=== PATIENT | female | born 1955 | race Caucasian/White ===

== ENCOUNTER 2023-09-03 16:12 | Inpatient (IN) | payer OTHER, SELFPAY ==
[2023-09-03] VITALS (9 sets, daily range): BP systolic 137–163; BP diastolic 50–119; PULSE 100–109; RESP 16–35; TEMP 36.6–37.4; O2SAT 93–95; BMI 25.0
--- NOTE | 2023-09-03 17:23 | EDS_ITS ---
HPI <DUSTIN Ruiz - Last Filed: 09/03/23 20:37> History of Present Illness Chief Complaint: Shortness of Breath Narrative Narrative: Patient is a 68-year-old female with intermittent history of lower leg edema who since May 2023 has been having issues with pleural effusions. Today, the patient had a thoracentesis on the right lung, this happened at approximately 2 PM today, 2 L of clear yellow fluid was expelled. This was completed secondary to concern for breast cancer, it was sent for cytology. Patient continued to have shortness of breath, tachypnea and was sent to the emergency department. Patient denies any fever or chills. PFSH <DUSTIN Ruiz - Last Filed: 09/03/23 20:37> PFSH Allergy/AdvReac Type Severity Reaction Status Date / Time No Known Allergies Allergy Verified 09/03/23 16:13 Social History Smoking Status: Never smoker ROS <DUSTIN Ruiz - Last Filed: 09/03/23 20:37> ROS ED ROS Narrative Constitutional: Negative for fever, chills, weight loss, weakness Eyes: Negative for vision loss, vision change, double vision ENT: Negative for any sore throat, ear pain, congestion Cardiovascular: Negative for any chest pain, tightness, palpitations Respiratory: Negative for any cough, sputum production, hemoptysis, dyspnea on exertion, orthopnea. Positive for dyspnea Gastrointestinal: Negative for any abdominal pain, nausea, vomiting, diarrhea, constipation, blood in stool, blood in vomit : Negative for any urinary frequency, dysuria, retention, blood in urine Muscle skeletal: Negative for any neck pain, back pain Neurological: Negative for any headache, syncope, dizziness Skin: Negative for any rashes, itching, abrasions, lacerations Psychiatric: Negative for any depression, anxiety, stress, suicidal ideation, homicidal ideation Hematologic: Negative for any excessive bruising, easy bleeding EXAM <DUSTIN Ruiz - Last Filed: 09/03/23 20:37> Physical Exam Narrative Exam Narrative: Vital signs reviewed. Patient is tachypneic breathing at 35 times per minute, patient heart rate is 105, patient is 93 to 94% on room air. Patient is alert and orient x 4. HEET: Head normocephalic atraumatic, TMs clear bilaterally. Posterior pharynx is clear, moist mucous membranes. Nares clear bilaterally. Neck: Supple with no lymphadenopathy or tenderness. No signs of meningismus. Cardiac: Regular rate and rhythm no murmurs gallops or rubs, equal peripheral pulses bilaterally. Respiratory: Diminished lung sounds to the right upper and lower lobe, left upper lobe clear, lower lobe was diminished.. No chest tenderness. Abdomen: Soft, nontender, nondistended. No abdominal bruit or pulsatile masses. No hepatosplenomegaly Extremities: No peripheral edema, no signs of gross trauma or deformity. Active full range of motion of all extremities. Neuro: Cranial nerves II through XII intact, no focal neurological deficits. Skin: Clean dry and intact with no rash, purpura, petechiae, vesicles or pustules. Backs/flank: No CVA tenderness, no midline spinal tenderness, no deformity. Psych: Normal mood and affect. No SI, HI or acute psychosis. Const Vital Signs: 09/03/23 16:14 09/03/23 16:18 09/03/23 16:22 Temperature 98.1 F 98.1 F Temperature Source Oral Oral Pulse Rate 102 H 102 H Respiratory Rate 35 H 35 H Respiratory Effort Short of Breath Respiratory Depth Shallow Blood Pressure 150/91 H 150/91 H Blood Pressure Mean 110 110 Pulse Ox 93 94 Oxygen Delivery Method Room Air Room Air Room Air Oxygen Flow Rate (L/min) 09/03/23 17:18 09/03/23 18:00 09/03/23 19:35 Temperature 98.2 F 97.8 F 98.1 F Temperature Source Temporal Temporal Oral Pulse Rate 102 H 100 109 H Respiratory Rate 26 H 27 H 30 H Respiratory Effort Respiratory Depth Blood Pressure 144/77 H 137/91 H 163/119 H Blood Pressure Mean 99 106 133 Pulse Ox 94 93 95 Oxygen Delivery Method Room Air Room Air Nasal Cannula Oxygen Flow Rate (L/min) 2 Positive well nourished and well developed General Appearance ED: well developed <Dr. Hamlet Mueller MD - Last Filed: 09/03/23 21:31> Physical Exam Const Vital Signs: 09/03/23 16:14 09/03/23 16:18 09/03/23 16:22 Temperature 98.1 F 98.1 F Temperature Source Oral Oral Pulse Rate 102 H 102 H Respiratory Rate 35 H 35 H Respiratory Effort Short of Breath Respiratory Depth Shallow Blood Pressure 150/91 H 150/91 H Blood Pressure Mean 110 110 Pulse Ox 93 94 Oxygen Delivery Method Room Air Room Air Room Air Oxygen Flow Rate (L/min) 09/03/23 17:18 09/03/23 18:00 09/03/23 19:35 Temperature 98.2 F 97.8 F 98.1 F Temperature Source Temporal Temporal Oral Pulse Rate 102 H 100 109 H Respiratory Rate 26 H 27 H 30 H Respiratory Effort Respiratory Depth Blood Pressure 144/77 H 137/91 H 163/119 H Blood Pressure Mean 99 106 133 Pulse Ox 94 93 95 Oxygen Delivery Method Room Air Room Air Nasal Cannula Oxygen Flow Rate (L/min) 2 MDM <DUSTIN Ruiz - Last Filed: 09/03/23 20:37> MDM Lab Data Labs: Laboratory Results - last 24 hr 09/03/23 09/03/23 14:50 17:00 WBC 11.6 H RBC 5.78 H Hgb 15.8 H Hct 48.7 H MCV 84.3 MCH 27.3 MCHC 32.4 RDW Std Deviation 42.8 RDW Coeff of Duy 14.0 Plt Count 237 MPV 10.2 Immature Gran % (Auto) 1.000 H Neut % (Auto) 81.2 H Lymph % (Auto) 11.1 L Hamilton % (Auto) 5.5 Eos % (Auto) 0.3 Baso % (Auto) 0.9 Absolute Neuts (auto) 9.5 H Absolute Lymphs (auto) 1.29 Nucleated RBC % 0 Sodium 135 L Potassium 4.4 Chloride 100 Carbon Dioxide 29.0 Anion Gap 6 BUN 26 H Creatinine 1.21 H Estim Creat Clear Calc 38.93 Est GFR (MDRD) Af Amer 57 L Est GFR (MDRD) Non-Af 47 L BUN/Creatinine Ratio 21.5 H Glucose 137 H Calcium 11.0 H Fluid Source THORACENTESIS Fluid Color YELLOW Fluid Appearance CLEAR Fluid WBC 0.759 Fluid RBC 25 Fluid Tot Cell Count 0.775 H Fld Polynuclear WBCs # 0.008 Fld Polynuclear WBCs % 1.0 Fluid Mononuclear WBCs 0.751 Fld Mononuclear WBCs % 99.0 Fluid Neutrophils 1 Fluid Monocytes 99 Fl Pathologist Comment May follow Fluid Comment 2 SEE COMMENT Radiography Diagnostic Testing: Clinical Impression(s) from Imaging Studies Chest X-Ray 09/03/23 17:35 IMPRESSION: Right basilar consolidation/atelectasis and mild effusion. There appears to be a left hydropneumothorax. Left basilar consolidation cannot be excluded. Electronically Signed: Benjy Saenz DO at 18:51 EDT , ADDENDUM: 09/03/231911 IMPRESSION: undefined ADDENDUM: 09/03/231920 IMPRESSION: undefined Chest CTA 09/03/23 18:15 IMPRESSION: No demonstrated pulmonary embolism or arterial dissection. There is a moderately large left pleural effusion with significant compression of the left lung. There is a complex right hydropneumothorax with layering debris. Right pulmonary patchy infiltrates. Focal ill-defined right upper lobe nodular density. Diffuse bony metastasis. Left adrenal nodule. Electronically Signed: Benjy Saenz DO at 19:16 EDT , Chest X-Ray 09/03/23 20:20 IMPRESSION: Slight reduction in size right pleural effusion since previous study following chest tube placement. Electronically Signed: Son Andrew MD at 21:19 EDT , Treatment and Re-Evaluation :: Differential diagnosis includes however is not limited to: Pneumothorax, pleural effusion, hemothorax, infection, pulmonary embolus, community-acquired pneumonia Patient appears to be in slight distress secondary to tachypnea, patient's breathing 35 times per minute, patient's pulse oxygenation is between 93 to 95%. Heart rate is 105. I do have decreased lung sounds to the right lung, patient received a two-view chest x-ray. I did call the laboratory, I am running cell count, Gram stain, as well as culture on the thoracentesis fluid that the expelled today. Patient received a two-view chest x-ray now. All radiologic examinations were read, reviewed by the emergency department attending. From these reads, a plan of care will be put in place. Basic laboratory values were drawn. Patient will be reevaluated Patient CBC shows a leukocytosis of 11.6, patient's hemoglobin is 15.8, chemistries show sodium 135, creatinine of 1.2, patient's chest x-ray shows right basilar consolidation/atelectasis and mild effusion. There appears to be a left hydropneumothorax. Left basilar consolidation, cannot be excluded. Patient did receive a CTA of the chest, this shows no demonstrated pulmonary embolism or atrial dissection. There is a moderately large left pleural effusi on with significant compression of the left lung. There is a complex right hydropneumothorax with layering debris. Right pulmonary patchy infiltrates. Focal ill-defined right upper lobe nodule density. Diffuse bony metastasis, left adrenal nodule. Second to this finding, the emergency department attending did place a right-sided chest tube. Please see his documentation. At this time, patient did have some relief. Patient will be admitted to the hospital. <Dr. Hamlet Mueller MD - Last Filed: 09/03/23 21:31> [facility] Narrative Medical decision making narrative: I have personally performed a face to face assessment of the patient and have reviewed the PHUONG Note. I performed a substantive portion of the visit including all aspects of the following. My santiago findings include: History is patient presents because of shortness of breath. Patient had a thoracentesis done today. Postthoracentesis chest x-ray apparently was negative. Patient is tachycardic, tachypneic and hypertensive. She is not requiring oxygen at this time. Patient does appear in respiratory distress. Breath sounds are diminished on the right compared to the left. She has no breath sounds two thirds of the lung field on the left. There is breath sounds noted upper lung field the right but it is diminished and uncertain whether this is due to a pneumothorax or her small hemothorax. Exam is vital signs reveal tachycardia, tachypnea hypertension. Breath sounds are abnormal bilaterally more so left than right. Abdomen is soft nontender. Patient has an obvious right breast cancer. Medical Decision Making patient differential includes pneumothorax, PE. Since there was no obvious pneumothorax on the chest x-ray CT was obtained since patient tachycardic tachypneic and has obvious right breast cancer. Gram stain, cell count and culture was obtained on fluid that was obtained from radiology. The fluid was sent for cytology. Other additions or changes: Patient required a chest tube. Please see procedure note. History & Record Review Discussion w/independent historian: Patient and Family Lab Data Attestation: I reviewed the patient's lab results. Lab results narrative: CBC reveals slightly low white count of 11.6 thousand. Differential reveals mild shift with no bandemia. Electrolyte panel reveals a creatinine of 1.21 with an estimated GFR 47. Pleural fluid reveals 759 WBCs with 25 RBCs. Labs: Laboratory Results - last 24 hr 09/03/23 09/03/23 14:50 17:00 WBC 11.6 H RBC 5.78 H Hgb 15.8 H Hct 48.7 H MCV 84.3 MCH 27.3 MCHC 32.4 RDW Std Deviation 42.8 RDW Coeff of Duy 14.0 Plt Count 237 MPV 10.2 Immature Gran % (Auto) 1.000 H Neut % (Auto) 81.2 H Lymph % (Auto) 11.1 L Hamilton % (Auto) 5.5 Eos % (Auto) 0.3 Baso % (Auto) 0.9 Absolute Neuts (auto) 9.5 H Absolute Lymphs (auto) 1.29 Nucleated RBC % 0 Sodium 135 L Potassium 4.4 Chloride 100 Carbon Dioxide 29.0 Anion Gap 6 BUN 26 H Creatinine 1.21 H Estim Creat Clear Calc 38.93 Est GFR (MDRD) Af Amer 57 L Est GFR (MDRD) Non-Af 47 L BUN/Creatinine Ratio 21.5 H Glucose 137 H Calcium 11.0 H Fluid Source THORACENTESIS Fluid Color YELLOW Fluid Appearance CLEAR Fluid WBC 0.759 Fluid RBC 25 Fluid Tot Cell Count 0.775 H Fld Polynuclear WBCs # 0.008 Fld Polynuclear WBCs % 1.0 Fluid Mononuclear WBCs 0.751 Fld Mononuclear WBCs % 99.0 Fluid Neutrophils 1 Fluid Monocytes 99 Fl Pathologist Comment May follow Fluid Comment 2 SEE COMMENT Radiography Chest X-Ray - ED: 1 View (You have no portable chest x-ray was obtained post chest tube. Lung is expanded. Chest tube is in proper position. This is apparently reviewed interpreted by me.), 2 View and Read by ED Physician (Chest x-ray on the PA reveals less pleural effusion on the right. There appears to be lung markings all the way to through out the lung field on the right. She has a moderate to significant size left pleural effusion. The lateral reveals an abnormality which I am uncertain what this represents.) Diagnostic Testing: Clinical Impression(s) from Imaging Studies Chest X-Ray 09/03/23 17:35 IMPRESSION: Right basilar consolidation/atelectasis and mild effusion. There appears to be a left hydropneumothorax. Left basilar consolidation cannot be excluded. Electronically Signed: Benjy Saenz DO at 18:51 EDT , ADDENDUM: 09/03/231911 IMPRESSION: undefined ADDENDUM: 09/03/231920 IMPRESSION: undefined Chest CTA 09/03/23 18:15 IMPRESSION: No demonstrated pulmonary embolism or arterial dissection. There is a moderately large left pleural effusion with significant compression of the left lung. There is a complex right hydropneumothorax with layering debris. Right pulmonary patchy infiltrates. Focal ill-defined right upper lobe nodular density. Diffuse bony metastasis. Left adrenal nodule. Electronically Signed: Benjy Saenz DO at 19:16 EDT , Chest X-Ray 09/03/23 20:20 IMPRESSION: Slight reduction in size right pleural effusion since previous study following chest tube placement. Electronically Signed: Son Andrew MD at 21:19 EDT , Procedures <Dr. Hamlet Mueller MD - Last Filed: 09/03/23 21:31> Other Procedures Procedure(s): Right chest tube Patient was explained risk benefits of chest tube. Chest tube was placed using 28 Malay. In my opinion based on the cancer and the fact that she has fluid which may be a malignant pleural effusion concern the small tubing would occlude. After explaining risk benefits patient did sign consent form. Patient was prepped draped sterile manner. The area anesthetized with 1% lidocaine. An incision was made using a 10 blade. The incision was lower than normal. Blunt dissection was undertaken to go 3 ribs above incision site. The pleural cavity was entered. There was a mancilla of air. 28 Malay chest tube was placed. Patient's vital signs improved after placement of chest tube. She did require medication during the procedure. She was given IV fentanyl. Will obtain chest x-ray for chest tube placement. Hospitalist has been called. If patient and seen by surgeon will consult surgery for chest tube management otherwise will call pulmonary. Discharge Plan Dx/Rx/DC Orders Clinical Impression: Acute respiratory failure with hypoxia, Iatrogenic pneumothorax, Sinus tachycardia, Dyspnea, Bilateral pleural effusion, Breast mass Disposition Disposition: Acute Care Hospital [facility]
--- NOTE | 2023-09-03 17:35 | RAD_ITS ---
We are attempting to reach an attending provider to discuss findings. An addendum with communication details will be sent when the communication is complete. INDICATION: shortness of breath EXAMINATION/TECHNIQUE: X-RAY - XR Chest 2 Views COMPARISON: September 03, 2023 at 15:03 hours FINDINGS: LINES/DEVICES: None. LUNGS: Right basilar consolidation/atelectasis and mild effusion. There appears to be a left hydropneumothorax. Left basilar consolidation cannot be excluded. MEDIASTINUM AND CARDIOVASCULAR STRUCTURES: Cardiac silhouette not enlarged. Central airways and mediastinal contour are unremarkable. BONES AND SOFT TISSUES: Degenerative vertebral changes. RAD/Chest PA and Lateral IMPRESSION: Right basilar consolidation/atelectasis and mild effusion. There appears to be a left hydropneumothorax. Left basilar consolidation cannot be excluded. Electronically Signed: Benjy Saenz DO at 18:51 EDT ,
[2023-09-03 17:42] LABS: Absolute Lymphocyte Count 1.29 X10^3/uL (0.83-4.51); Absolute Neutrophil Count 9.5 X10^3/uL (2.0-7.7); Basophil# 0.11 X10^3/uL; Basophil% 0.9 % (0-1); Eosinophil# 0.03 X10^3/uL; Eosinophils% 0.3 % (0-5); Hematocrit 48.7 % (37-47); Hemoglobin 15.8 g/dL (12.0-15.0); Lymphocyte # 1.29 X10^3/ul (0.83-4.51); Lymphocyte % 11.1 % (19-41); Mean Corp Hgb Conc 32.4 g/dL (32-36); Mean Corpuscular Hgb 27.3 pg (27.0-32.0); Mean Corpuscular Volume 84.3 fL (81-99); Mean Platelet Vol. 10.2 fl (6.2-12.0); Monocyte# 0.64 X10^3/uL; Monocyte% 5.5 % (0-10); NRBC Flagged by Analyzer 0 % (0-5); Neutrophil # 9.45 X10^3/uL (2.7-7.7); Neutrophil % 81.2 % (47-70); Platelet Count 237 K/mm3 (150-450); RBC Distribution Width SD 42.8 fl (35.1-43.9); Red Blood Count 5.78 M/mm3 (4.2-5.4); White Blood Count 11.6 K/mm3 (4.4-11.0)
[2023-09-03 17:57] LABS: Anion Gap 6 (5-15); BUN 26 mg/dL (7-18); BUN/Creat Ratio 21.5 RATIO (10-20); Chloride 100 mmol/L (98-107); Creatinine, Serum 1.21 mg/dL (0.55-1.02); EST Glomerular Filtration Rate 47 mL/min (>60); Est Glom Filt Rate - Afr Amer 57 mL/min (>60); Estimated Creatinine Clearance 38.93 ml/min; Glucose 137 mg/dL (74-106); Potassium 4.4 mmol/L (3.5-5.1); Sodium Level 135 mmol/L (136-145)
--- NOTE | 2023-09-03 18:15 | CT_ITS ---
STUDY: CTA CHEST REASON FOR EXAM: Female, 68 years old. PE RADIATION DOSAGE (If Supplied By Facility): CTDIvol = ( 9.92 ) mGy, DLP = ( 327.24 ) mGycm TECHNIQUE: The examination was performed with the intravenous administration of ISOVUE 370-100ml. Post-processing of the angiographic images was performed, with multiplanar reformation and 3D reconstruction. Individualized dose optimization techniques were used for this CT. COMPARISON: FINDINGS: Normal enhancement of the main pulmonary artery and right and left pulmonary arteries. Normal enhancement of the bilateral peripheral pulmonary arteries. There is no demonstrated pulmonary embolism. Normal thoracic aorta and visualized great vessels. There is no demonstrated aortic dissection. Normal heart and pericardium. Normal mediastinum. Normal hilar regions. Normal visualized trachea and bronchi. There is a moderately large left pleural effusion with significant compression of the left lung. There is a complex right hydropneumothorax with layering debris. Right pulmonary patchy infiltrates. Focal ill-defined right upper lobe nodular density measuring 8 mm Normal chest wall structures. Diffuse bony metastasis is suspected. Left adrenal 1.[address]/CTA Chest W/WO Contrast IMPRESSION: No demonstrated pulmonary embolism or arterial dissection. There is a moderately large left pleural effusion with significant compression of the left lung. There is a complex right hydropneumothorax with layering debris. Right pulmonary patchy infiltrates. Focal ill-defined right upper lobe nodular density. Diffuse bony metastasis. Left adrenal nodule. Electronically Signed: Benjy Saenz DO at 19:16 EDT ,
[2023-09-03 18:54] LABS: Body Fluid Mononuclear WBC # 0.751 10^3/uL; Body Fluid Polynuclear WBC # 0.008 10^3/uL; Body Fluid Total Cells Counted 0.775 10^3/ul; White Blood Count/Body Fluid 0.759 10^3/uL
[2023-09-03 18:57] LABS: Red Cell Count/Body Fluid 25 /mm3
[2023-09-03] MEDS: fentaNYL 100 MCG/2 ML Ampul 50 MCG IV (19:32)
[2023-09-03] MEDS: Lidocaine 1% (20 ml mdv) 20 ML Vial 10 ML INFILT (19:33)
[2023-09-03 20:07] LABS: Appearance/Body Fluid CLEAR; Auto B Fluid Analyzer BKGD Ct COUNTS W/IN LIMITS (W/IN LIMITS); Color/Body Fluid YELLOW; Neutrophil (Segs) 1 %; Source- Body Fluid THORACENTESIS
[2023-09-03 20:08] LABS: Body Fluid QC Type(s) BF1Q
--- NOTE | 2023-09-03 20:09 | HP.PCM.HOS_ITS ---
HPI - General General Date of Admission: 09/03/23 Date of Service: 09/03/23 Chief Complaint: SOB. HPI Narrative DARCY BURNHAM, is a 68 F with a past medical history of breast cancer with malignant bilateral pleural effusions followed by Dr. Ferreira of oncology; s/p recent Right thoracentesis at radiology earlier today who presents to [facility] ER complaining of SOB. Ms. Shepard reports her symptoms began approximately 2:00 PM today after she said with ~2L of yellow fluid aspirated with patient then having increasing SOB and palpitations. She denies associated fever, chills, nausea or vomiting. In the ER her CT scan of the chest was positive for a complex Right Hydropneumothorax with layering debris and significant compression of the Left lung with a moderately large Left pleural effusion with significant compression of the Left lung and diffuse bony metastasis complicated by clinical evidence of acute respiratory insufficiency and uncontrolled hypertension with patient still a Full Code. Then the ER provider place a Right chest tube and called the hospitalist service to admit this patient to ICU for ongoing care for a stay that is expected to be greater than 48 hours. [facility] Medical History no medical history Home Medications NK 09/03/23 [History Last Taken Unknown] Allergy/AdvReac Type Severity Reaction Status Date / Time No Known Allergies Allergy Verified 09/03/23 16:13 Surgical History no surgical history Social History Smoking Status: Never smoker ROS ROS Narrative Review of systems: General: Patient denies fevers or chills. HENT: Denies headache, denies stuffy nose, denies sore throat EYES: Denies changes in vision Resp: Patient admits to severe shortness of breath as per HPI. Cardiac: Denies chest pain or palpitations. GI: Denies abdominal pain, denies changes in bowel, had denies vomiting or nausea : Denies changes in urination Extremity: Denies swelling Musculoskeletal: Feels somewhat generally weak and unwell Neuro: Denies any numbness/tingling Heme: Denies any bleeding or bruising Skin: Denies rashes Psychiatric: No complaints voiced related to uncontrolled depression or anxiety. Endocrine: No polyuria, polydipsia or polyphagia The rest of the 14 point ROS was negative except for positives in HPI. Vital Signs Vital Signs Vital Signs: 09/03/23 16:14 09/03/23 16:18 09/03/23 16:22 Temperature 98.1 F 98.1 F Temperature Source Oral Oral Pulse Rate 102 H 102 H Respiratory Rate 35 H 35 H Respiratory Effort Short of Breath Respiratory Depth Shallow Blood Pressure 150/91 H 150/91 H Blood Pressure Mean 110 110 Pulse Ox 93 94 Oxygen Delivery Method Room Air Room Air Room Air Oxygen Flow Rate (L/min) 09/03/23 17:18 09/03/23 18:00 09/03/23 19:35 Temperature 98.2 F 97.8 F 98.1 F Temperature Source Temporal Temporal Oral Pulse Rate 102 H 100 109 H Respiratory Rate 26 H 27 H 30 H Respiratory Effort Respiratory Depth Blood Pressure 144/77 H 137/91 H 163/119 H Blood Pressure Mean 99 106 133 Pulse Ox 94 93 95 Oxygen Delivery Method Room Air Room Air Nasal Cannula Oxygen Flow Rate (L/min) 2 Weight Weight: 150 lb 5.684 oz Body Mass Index (BMI) 25.0 Physical Exam Const alert, oriented x3 and no apparent distress Constitutional Narrative: Patient appears chronically ill. General Appearance: cooperative HEENT normocephalic, head/scalp atraumatic and hearing grossly normal bilaterally HEENT Narrative: Mucous membranes dry. Eyes PERRL and EOMs intact bilaterally Neck no lymphadenopathy and supple Resp Resp Narrative: Diminished breath sounds throughout with right chest tube in place. Cardio regular rate and regular rhythm GI normal to inspection, nondistended, normoactive bowel sounds, soft to palpation, non-tender and non-distended Extremity normal to inspection and full ROM Skin Skin Narrative: Patient appears extremely pale but there is no evidence of rash or jaundice. Neuro oriented x3, CN's II-XII intact bilaterally, moves all extremities and no focal motor deficits Sensorium / Orientation: awake, alert, oriented to person, oriented to place and oriented to time Speech: speech normal Psych affect normal Results Medical Records Data Attestation: I reviewed the patient's medical records Lab / Micro Data Attestation: I reviewed the patient's lab results. 09/03/23 17:00 09/03/23 17:00 Labs: Laboratory Results - last 24 hr 09/03/23 14:50: Fluid Source THORACENTESIS, Fluid Color YELLOW, Fluid Appearance CLEAR, Fluid WBC 0.759, Fluid RBC 25, Fluid Tot Cell Count 0.775 H, Fld Polynuclear WBCs # 0.008, Fld Polynuclear WBCs % 1.0, Fluid Mononuclear WBCs 0.751, Fld Mononuclear WBCs % 99.0, Fluid Neutrophils 1, Fluid Monocytes 99, Fl Pathologist Comment May follow, Fluid Comment 2 SEE COMMENT 09/03/23 17:00: WBC 11.6 H, RBC 5.78 H, Hgb 15.8 H, Hct 48.7 H, MCV 84.3, MCH 27.3, MCHC 32.4, RDW Std Deviation 42.8, RDW Coeff of Duy 14.0, Plt Count 237, MPV 10.2, Immature Gran % (Auto) 1.000 H, Neut % (Auto) 81.2 H, Lymph % (Auto) 11.1 L, [place] % (Auto) 5.5, Eos % (Auto) 0.3, Baso % (Auto) 0.9, Absolute Neuts (auto) 9.5 H, Absolute Lymphs (auto) 1.29, Nucleated RBC % 0, Sodium 135 L, Potassium 4.4, Chloride 100, Carbon Dioxide 29.0, Anion Gap 6, BUN 26 H, Creatinine 1.21 H, Estim Creat Clear Calc 38.93, Est GFR (MDRD) Af Amer 57 L, Est GFR (MDRD) Non-Af 47 L, BUN/Creatinine Ratio 21.5 H, Glucose 137 H, Calcium 11.0 H Imaging Radiology Impression Chest X-Ray 09/03/23 17:35 IMPRESSION: Right basilar consolidation/atelectasis and mild effusion. There appears to be a left hydropneumothorax. Left basilar consolidation cannot be excluded. Electronically Signed: Benjy Saenz DO at 18:51 EDT Reading Location ID and State: [facility] / [place] Tel [phone], Service support , ADDENDUM: 09/03/231911 IMPRESSION: undefined ADDENDUM: 09/03/231920 IMPRESSION: undefined Chest CTA 09/03/23 18:15 IMPRESSION: No demonstrated pulmonary embolism or arterial dissection. There is a moderately large left pleural effusion with significant compression of the left lung. There is a complex right hydropneumothorax with layering debris. Right pulmonary patchy infiltrates. Focal ill-defined right upper lobe nodular density. Diffuse bony metastasis. Left adrenal nodule. Electronically Signed: Benjy Dany at 19:16 EDT , Assessment & Plan Assessment/Plan (1) Iatrogenic pneumothorax: (2) Respiratory insufficiency: (3) Uncontrolled hypertension: PLAN: Plan 1. Complex Right Hydropneumothorax with layering debris and significant compression of the Left lung with a moderately large Left pleural effusion with significant compression of the Left lung and diffuse bony metastasis - Admit to ICU. Continue chest tube care plan and consult general surgery to see this patient for further recommendations with help appreciated in advance. Give Tylenol prn for [id number] (level 1-5/10 pain or fever). Give Morphine IV prn for severe (level 6-10/10) pain. 2. Known history of metastatic breast cancer followed by Dr. Ferreira of oncology with recent thoracentesis at IR with post-procedure complication leading to #1 - Noted. 3. Uncontrolled Hypertension compounding #1 & #2 - Give IV Hydralazine for systolic blood pressure > 160 mm Hg. 4. Acute Hypoxic Respiratory Insufficiency arising from #1 - #3 - Wean supplemental oxygen as tolerated. 5. DVT prophylaxis - SCD's only after recent thoracentesis complicated by PTX. Total time: Approximately 55 minutes. Charges/Coding Visit Charges Inpatient E&M: 95938 Init Hosp L2
--- NOTE | 2023-09-03 20:20 | RAD_ITS ---
STUDY: X-RAY CHEST REASON FOR EXAM: Female, 68 years old. CHEST TUBE PLACEMENT TECHNIQUE: AP portable COMPARISON: [September 03 2023 5:56 PM FINDINGS: Comparison with prior exam again demonstrates persistent right hydropneumothorax. The pleural effusion has decreased slightly in size since prior exam status post chest tube placement large left pleural effusion and consolidation of left lower lobe... RAD/Chest 1 View (Portable) IMPRESSION: Slight reduction in size right pleural effusion since previous study following chest tube placement. Electronically Signed: Son Andrew MD at 21:19 EDT ,
[2023-09-03] MEDS: 0.9% Normal Saline (1000mL) 1,000 ML 40 ML IV (22:28)
[2023-09-03] MEDS: 0.9% Saline Lock 10 ML Syringe IV (22:31)
[2023-09-04] VITALS (7 sets, daily range): BP systolic 137–159; BP diastolic 80–86; PULSE 102–104; RESP 18–20; TEMP 36.3–36.6; O2SAT 95–97; BMI 24.9
--- NOTE | 2023-09-04 00:25 | CON.PCM.SX_ITS ---
Assessment & Plan Assessment/Plan (1) Breast mass: (2) Bilateral pleural effusion: (3) Iatrogenic pneumothorax: PLAN: Plan Patient is 68-year-old female with likely new metastatic breast cancer diagnosis and associated pleural effusions. Cytology is currently pending from earlier thoracentesis that resulted in a significant pneumothorax. Chest tube was placed by emergency medicine and appears in reasonably good position within the right hemithorax. Post procedurally radiology did comment on a persistent hydropneumothorax which suggest that the tube and the pleural air are in different anterior/posterior orientations from 1 another. Provided that patient's right lung is not trapped in the pleural space is rather confluent still this tube should serve the purpose of evacuating this pneumothorax. Clinically patient reports significant improvement in her shortness of breath at bedside tonight. I informed her that we will plan to keep the tube on suction and monitor its output. At this time I do not observe an air leak. Will plan for repeat chest x-ray in the morning. It is apparent that patient has a moderately large left pleural effusion as well and there are reports that primary team is tentatively planning for left-sided thoracentesis later in patient's admission. When able would recommend patient advancement to a high- protein diet. For now recommend: ? Chest tube to continuous suction at -20 cm of water monitoring for kinking and disconnection ? A.m. chest x-ray HPI Consult Data Date of Consult: 09/04/23 HPI Narrative Reason for Consultation: Right hydropneumothorax status post chest tube HPI Narrative: DARCY BURNHAM, is a 68 F who presented to [facility] for right thoracentesis. Post procedurally she developed severe tachypnea and tachycardia resulting in reimaging which showed evidence of a hydropneumothorax. Upon making this observation emergency medicine placed a 28 Bulgarian chest tube to the right pleural cavity resulting in some improvement patient's pleural effusion. Surgery was asked to evaluate for ongoing chest tube management. Patient is visited in her room with her family present. She shares that she first started feeling short of breath in May. She notes that this tap of her lung was the first time she has required this procedure. She confirms that she has been told previously that this pleural effusion may be related to an undiagnosed breast cancer. She suggests that her right breast firmness, exhibited on exam, started just 2 months ago. There is no family history of breast cancer. [facility] Medical History no medical history Home Medications NK 09/03/23 [History Last Taken Unknown] Allergy/AdvReac Type Severity Reaction Status Date / Time No Known Allergies Allergy Verified 09/03/23 16:13 Surgical History no surgical history Social History Smoking Status: Never smoker Physical Exam Const alert Constitutional Narrative: Flat affect General Appearance: cooperative Chest Chest Narrative: Chest tube in place draining serosanguineous fluid with some exudative material. Right breast with significant firmness and some nipple inversion/effacement. There is also some overlying redness of the skin Resp Resp Narrative: Mildly tachypneic. Pleur-evac with no obvious air leak but there is titling. Chest tube is currently connected to -20 cm of water without kinking and all connections appear intact. Lab / Micro Data 09/03/23 17:00 09/03/23 17:00 Labs: Laboratory Results - last 24 hr 09/03/23 14:50: Fluid Source THORACENTESIS, Fluid Color YELLOW, Fluid Appearance CLEAR, Fluid WBC 0.759, Fluid RBC 25, Fluid Tot Cell Count 0.775 H, Fld Polynuclear WBCs # 0.008, Fld Polynuclear WBCs % 1.0, Fluid Mononuclear WBCs 0.751, Fld Mononuclear WBCs % 99.0, Fluid Neutrophils 1, Fluid Monocytes 99, Fl Pathologist Comment May follow, Fluid Comment 2 SEE COMMENT 09/03/23 17:00: WBC 11.6 H, RBC 5.78 H, Hgb 15.8 H, Hct 48.7 H, MCV 84.3, MCH 27.3, MCHC 32.4, RDW Std Deviation 42.8, RDW Coeff of Duy 14.0, Plt Count 237, MPV 10.2, Immature Gran % (Auto) 1.000 H, Neut % (Auto) 81.2 H, Lymph % (Auto) 11.1 L, [place] % (Auto) 5.5, Eos % (Auto) 0.3, Baso % (Auto) 0.9, Absolute Neuts (auto) 9.5 H, Absolute Lymphs (auto) 1.29, Nucleated RBC % 0, Sodium 135 L, Potassium 4.4, Chloride 100, Carbon Dioxide 29.0, Anion Gap 6, BUN 26 H, Creati nine 1.21 H, Estim Creat Clear Calc 38.93, Est GFR (MDRD) Af Amer 57 L, Est GFR (MDRD) Non-Af 47 L, BUN/Creatinine Ratio 21.5 H, Glucose 137 H, Calcium 11.0 H Imaging Radiology Impression Chest X-Ray 09/03/23 17:35 IMPRESSION: Right basilar consolidation/atelectasis and mild effusion. There appears to be a left hydropneumothorax. Left basilar consolidation cannot be excluded. Electronically Signed: Benjy Saenz DO at 18:51 EDT , ADDENDUM: 09/03/231911 IMPRESSION: undefined ADDENDUM: 09/03/231920 IMPRESSION: undefined Chest CTA 09/03/23 18:15 IMPRESSION: No demonstrated pulmonary embolism or arterial dissection. There is a moderately large left pleural effusion with significant compression of the left lung. There is a complex right hydropneumothorax with layering debris. Right pulmonary patchy infiltrates. Focal ill-defined right upper lobe nodular density. Diffuse bony metastasis. Left adrenal nodule. Electronically Signed: Benjy Saenz DO at 19:16 EDT , Chest X-Ray 09/03/23 20:20 IMPRESSION: Slight reduction in size right pleural effusion since previous study following chest tube placement. Electronically Signed: Son Andrew MD at 21:19 EDT , Charges/Coding Visit Charges Inpatient E&M: 16708 Init Hosp L2
--- NOTE | 2023-09-04 05:55 | RAD_ITS ---
STUDY: X-RAY CHEST REASON FOR EXAM: Female, 68 years old. Right PTX after thoracentesis. TECHNIQUE: Single AP portable view of the chest. COMPARISON: September 03, 2023 FINDINGS: There is right chest tube. There are monitoring devices. There are left greater than right mid and lower lung airspace increased opacities. There is moderately large left pleural effusion. There is small right pleural effusion there is no pneumothorax seen. Normal size heart. Normal mediastinum and sandrita. Normal visualized pulmonary arteries. Normal visualized aortic arch and descending thoracic aorta. Normal visualized thoracic spine. Normal visualized ribs, clavicles, and shoulders. There is no demonstrated abnormality of the visualized soft tissue structures of the upper abdomen. RAD/Chest 1 View (Portable) IMPRESSION: Left greater than right infiltrates or edema and pleural effusions. Right chest tube. No pneumothorax seen. Electronically Signed: Bill Johnson MD at 11:09 EDT ,
[2023-09-04 06:14] LABS: Basophil# 0.06 X10^3/uL; Basophil% 0.4 % (0-1); Eosinophil# 0.01 X10^3/uL; Eosinophils% 0.1 % (0-5); Hemoglobin 15.4 g/dL (12.0-15.0); Lymphocyte % 8.9 % (19-41); Mean Corp Hgb Conc 32.8 g/dL (32-36); Mean Corpuscular Hgb 27.6 pg (27.0-32.0); Mean Corpuscular Volume 84.2 fL (81-99); Mean Platelet Vol. 10.4 fl (6.2-12.0); Monocyte% 7.6 % (0-10); NRBC Flagged by Analyzer 0 % (0-5); Neutrophil # 13.04 X10^3/uL (2.7-7.7); Neutrophil % 82.4 % (47-70); Platelet Count 218 K/mm3 (150-450); Red Blood Count 5.58 M/mm3 (4.2-5.4); White Blood Count 15.8 K/mm3 (4.4-11.0)
[2023-09-04 06:52] LABS: ALB/GLOB Ratio 0.7 RATIO (0.9-2.4); AST(SGOT) 37 U/L (15-37); Alanine Aminotransfer ALT/SGPT 28 U/L (13-56); Alkaline Phosphatase 325 U/L (45-117); Anion Gap 7 (5-15); BUN 26 mg/dL (7-18); BUN/Creat Ratio 24.3 RATIO (10-20); Calcium,Total 10.3 mg/dL (8.5-10.1); Chloride 103 mmol/L (98-107); Creatinine, Serum 1.07 mg/dL (0.55-1.02); EST Glomerular Filtration Rate 54 mL/min (>60); Est Glom Filt Rate - Afr Amer 65 mL/min (>60); Estimated Creatinine Clearance 44.02 ml/min; Globulin 4.5 g/dL (2.2-4.2); Glucose 119 mg/dL (74-106); Magnesium 2.5 mg/dL (1.6-2.6); Phosphorus 4.6 mg/dL (2.5-4.9); Potassium 4.4 mmol/L (3.5-5.1); Protein, Total 7.5 g/dL (6.4-8.2); Sodium Level 137 mmol/L (136-145)
--- NOTE | 2023-09-04 10:30 | CASEMGMT ---
OBED GREER Face to Face with patient for initial transition planning/care coordination assessment. RN CM introduced self and role at [facility]. Patient lying in bed, alert and oriented, family at bedside. Patient willing to participate in assessment and is able to answer all questions appropriately. Care providers, pharmacy, and demographics verified. 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 Patient states she was independent at home. Transportation: driving service DME/HHC: Patient has raised toilet, cane, walker, wheelchair, pulse ox at home. Patient has concentrator that she borrowed from chiropractor but no portability. Will monitor for home oxygen with portability, prefers [employer]. Has generator for electricity. No previous HHC or SNF. Patient wishes to discharge home, denies needs for HHC or SNF, states family can assist at home. Will monitor progress with therapy. Patient states she has no further needs or concerns at this time. CM to follow for discharge planning needs that may arise. Disposition Plan: Patient to discharge home with family support and follow-up plans in place. Will monitor for home oxygen and HHC at discharge. Danuta CHAMPAGNE, RN, CM
[2023-09-04] MEDS: Ensure Plus High Protein 120 ML LIQUID PO ×3 (14:37→22:27)
--- NOTE | 2023-09-04 19:37 | PN.HOSP_ITS ---
Reason for Visit Reason for Visit: Diagnoses Essential (primary) hypertension (09/03/23) Pleural effusion, not elsewhere classified (09/03/23) Postprocedural pneumothorax (09/03/23) Acute respiratory failure with hypoxia (09/03/23) Unspecified lump in unspecified breast (09/03/23) Other abnormalities of breathing (09/03/23) Subjective Subjective Patient was seen and examined today, she is currently on 2 L of oxygen, she appears frail and unwell however. I talked to general surgery about her care, I also talked with Dr. Eckert who is covering for Dr. Ferreira, he thinks it may be advantageous to transfer the patient to a bigger facility where a chest surgeon is available for the patient to see regarding a possible pleurodesis. I also talked with Dr. Olmedo about this today, unfortunately I do not know if we have a tissue diagnosis at the time of this dictation, I will have to talk to the patient and the patient's family again tomorrow, the patient today told me that she has not seen an oncologist which is obviously not true. Objective Data Objective Data Vital Signs: Vital Signs Temp Pulse Resp BP Pulse Ox O2 Del Method O2 Flow Rate 98 F 102 H 19 H 144/80 H 95 Nasal Cannula 2 09/04/23 16:51 09/04/23 16:51 09/04/23 16:51 09/04/23 16:51 09/04/23 16:51 09/04/23 16:51 09/04/23 16:51 Oxygen Flow Rate (L/min) 2 Oxygen Delivery Method Nasal Cannula Weight: 68 kg Body Mass Index (BMI) 24.9 Intake & Output: Intake and Output for Last 24 Hours 09/02/23 09/03/23 09/04/23 23:59 23:59 23:59 Intake Total 1459.33 / 1459.33 Output Total 650 / 800 1565 / 1565 Balance -650 / -800 -105.67 / -105.67 Medical Nutrition Assessment Dietitian: Malnutrition Criteria Met Start: 09/04/23 11:52 Freq: Status: Active Protocol: Document 09/04/23 11:52 AG (Rec: 09/04/23 11:52 AG [id number]) Nutrition Malnutrition Evidence of Malnutrition Exists Yes Malnutrition (severe): Chronic Evidenced By Suboptimal Energy Intake ( Severe),Weight Loss (Severe) Clinical Problem Chronic Disease or Condition Related Malnutrition Etiology severe, chronic malnutrition related to inadequate energy intake w/ increased energy needs d/t likely metastatic disease Signs/Symptoms as evidenced by estimated PO intake meeting <75% of estimated energy needs x 3 months, unintentional 9% wt loss x 3 months Status Active Problem Recommendation Dietitian Recommendations/Changes diet advanced to regular per Dr. Bai. Ensure Plus High Protein 120mL 4x/day w/ medpass given evidence of malnutrition Lab / Micro Data 09/04/23 05:11 09/04/23 05:11 Labs: Laboratory Results - last 24 hr 09/03/23 14:50: Fluid Source THORACENTESIS, Fluid Color YELLOW, Fluid Appearance CLEAR, Fluid WBC 0.759, Fluid RBC 25, Fluid Tot Cell Count 0.775 H, Fld Polynuclear WBCs # 0.008, Fld Polynuclear WBCs % 1.0, Fluid Mononuclear WBCs 0.751, Fld Mononuclear WBCs % 99.0, Fluid Neutrophils 1, Fluid Monocytes 99, Fl Pathologist Comment May follow, Fluid Comment 2 SEE COMMENT 09/04/23 05:11: WBC 15.8 H, RBC 5.58 H, Hgb 15.4 H, Hct 47.0, MCV 84.2, MCH 27.6, MCHC 32.8, RDW Std Deviation 43.0, RDW Coeff of Duy 14.0, Plt Count 218, MPV 10.4, Immature Gran % (Auto) 0.600, Neut % (Auto) 82.4 H, Lymph % (Auto) 8.9 L, [place] % (Auto) 7.6, Eos % (Auto) 0.1, Baso % (Auto) 0.4, Absolute Neuts (auto) 13.0 H, Absolute Lymphs (auto) 1.40, Nucleated RBC % 0, Sodium 137, Potassium 4.4, Chloride 103, Carbon Dioxide 27.0, Anion Gap 7, BUN 26 H, Creatinine 1.07 H , Estim Creat Clear Calc 44.02, Est GFR (MDRD) Af Amer 65, Est GFR (MDRD) Non-Af 54 L, BUN/Creatinine Ratio 24.3 H, Glucose 119 H, Calcium 10.3 H, Phosphorus 4.6, Magnesium 2.5, Total Bilirubin 0.60, AST 37, ALT 28, Alkaline Phosphatase 325 H, Total Protein 7.5, Albumin 3.0 L, Globulin 4.5 H, Albumin/Globulin Ratio 0.7 L, TSH 2.60 Micro: Microbiology 09/03/23 14:50 Fluid - Thoracentesis Fluid Gram Stain - Final 09/03/23 14:50 Fluid - Thoracentesis Fluid Body Fluid Culture - Preliminary No growth-Final to follow Radiography Diagnostic Testing: Radiology Impression Chest X-Ray 09/03/23 20:20 IMPRESSION: Slight reduction in size right pleural effusion since previous study following chest tube placement. Electronically Signed: Son Andrew MD at 21:19 EDT , Chest X-Ray 09/04/23 05:55 IMPRESSION: Left greater than right infiltrates or edema and pleural effusions. Right chest tube. No pneumothorax seen. Electronically Signed: Bill Johnson MD at 11:09 EDT , Physical Exam Const alert, oriented x3 and no apparent distress Constitutional Narrative: Patient appears frail, unwell General Appearance: cooperative, well kempt and well developed Orientation / Consciousness: awake, oriented to person and oriented to place HEENT normocephalic, head/scalp atraumatic and moist oral mucous membranes Eyes PERRL, EOMs intact bilaterally and conjunctivae normal Neck supple, no JVD, thyroid normal and no carotid bruits General: trachea midline Resp Resp Narrative: There are diminished breath sounds on the right, there is diminished breath sounds at the left lung base extending to the left mid lung Patient's respirations are shallow and rapid at time Auscultation: Negative for rales, rhonchi or wheezes Cardio regular rate, regular rhythm, S1 normal heart sound, S2 normal heart sound, no murmurs, no rub and no gallops GI normal to inspection, nondistended, normoactive bowel sounds, soft to palpation, non-tender and non-distended Extremity no clubbing, cyanosis or edema Skin Skin Narrative: The entire right breast area is reddened and firm to the touch, the firmness extends up into the right axillary area Neuro oriented x3, CN's II-XII intact bilaterally, moves all extremities, no focal motor deficits and no sensory deficits noted Sensorium / Orientation: awake, alert, oriented to person and oriented to place Speech: speech normal Psych affect normal Assessment & Plan Assessment/Plan (1) Acute respiratory failure with hypoxia: PLAN: Plan 1. Iatrogenic pneumothorax-patient has a chest tube in place and she is still getting drainage, I discussed her care with general surgery today. #2 bilateral pleural effusions-right chest tube is draining large amounts of fluid still, we are waiting for cytology on the pleural fluid #3 suspected metastatic cancer with skeletal mets present-the most likely source of the metastatic cancer appears to be undiagnosed right breast cancer, patient may need a biopsy of the right breast #4 hypoxia secondary to bilateral pleural effusions and iatrogenic pneumothorax- patient is currently on 2 L of oxygen Total clinical time spent by myself addressing the patient's medical issues, reviewing all of her data, and collaborating with patient's care team: 35 minutes Charges/Coding Visit Charges Inpatient E&M: 78481 Subs Hosp L2
[2023-09-04] MEDS: 0.9% Normal Saline (1000mL) 1,000 ML 40 ML IV (22:27)
[2023-09-05] VITALS (9 sets, daily range): BP systolic 134–157; BP diastolic 77–99; PULSE 102–109; RESP 18–30; TEMP 36.3–36.4; O2SAT 95–97; BMI 25.9
--- NOTE | 2023-09-05 07:00 | RAD_ITS ---
EXAM: XR CHEST, 1 VIEW CLINICAL INDICATION: chest tube TECHNIQUE: Frontal view of the chest. COMPARISON: September 04, 2023 at 6:00 AM. FINDINGS: LUNGS AND PLEURAL SPACES: Suspicion of trace residual right pneumothorax with slight lucency at the apex, adjacent to the right mediastinal margin and adjacent to the right heart margin. Exam is indicated to be with upright position but there is no air-fluid level in the stomach to confirm completely upright positioning. Similar hazy basilar opacities bilaterally. There is similar appearance of moderate-large left pleural effusion and mild to moderate right pleural effusion. HEART: Unremarkable. Cardiac silhouette not enlarged. MEDIASTINUM: Central airways and mediastinal contour are unremarkable. BONES/JOINTS: Thoracic spondylosis.. No acute fracture. SOFT TISSUES: Unremarkable. TUBES, LINES AND DEVICES: Right thoracostomy tube remains stable in position, tip over the sixth posterior-medial right rib. RAD/Chest 1 View (Portable) IMPRESSION: 1. Similar findings. Well-positioned thoracostomy tube. Left greater than right pleural effusions and basilar opacities. 2. Suspicion of trace residual right pneumothorax as described, likely improved. There appear to be a larger subpulmonic pneumothorax component on September 03 2023. Electronically Signed: Lizz Gardner MD at 9:06 EDT ,
[2023-09-05] MEDS: Ensure Plus High Protein 120 ML LIQUID PO ×3 (09:01→18:33)
--- NOTE | 2023-09-05 09:15 | PCM.PN.SRG ---
Subjective Subjective Patient seen and examined during AM rounds. She is found sitting out of bed in the chair. Her family states that it was somewhat taxing for her to get to that point but patient states that she is feeling somewhat improved. They question whether or not a left-sided thoracentesis is planned for tomorrow. Objective Data Objective Data Vital Signs: Vital Signs Temp Pulse Resp BP Pulse Ox O2 Del Method O2 Flow Rate 97.6 F L 109 H 30 H 151/96 H 95 Nasal Cannula 2 09/05/23 09:00 09/05/23 09:00 09/05/23 09:00 09/05/23 09:00 09/05/23 09:00 09/05/23 09:00 09/05/23 09:00 Oxygen Flow Rate (L/min) 2 Oxygen Delivery Method Nasal Cannula Weight: 155 lb 10.342 oz Body Mass Index (BMI) 25.9 Intake & Output: Intake and Output for Last 24 Hours 09/03/23 09/04/23 09/05/23 23:59 23:59 23:59 Intake Total 1619.33 / 1619.33 Output Total 650 / 800 2085 / 2085 290 / 290 Balance -650 / -800 -465.67 / -465.67 -290 / -290 Medical Nutrition Assessment Dietitian: Malnutrition Criteria Met Start: 09/04/23 11:52 Freq: Status: Active Protocol: Document 09/04/23 11:52 AG (Rec: 09/04/23 11:52 [id number]) Nutrition Malnutrition Evidence of Malnutrition Exists Yes Malnutrition (severe): Chronic Evidenced By Suboptimal Energy Intake ( Severe),Weight Loss (Severe) Clinical Problem Chronic Disease or Condition Related Malnutrition Etiology severe, chronic malnutrition related to inadequate energy intake w/ increased energy needs d/t likely metastatic disease Signs/Symptoms as evidenced by estimated PO intake meeting <75% of estimated energy needs x 3 months, unintentional 9% wt loss x 3 months Status Active Problem Recommendation Dietitian Recommendations/Changes diet advanced to regular per Dr. Bai. Ensure Plus High Protein 120mL 4x/day w/ medpass given evidence of malnutrition Lab / Micro Data 09/04/23 05:11 09/04/23 05:11 Micro: Microbiology 09/03/23 14:50 Fluid - Thoracentesis Fluid Gram Stain - Final 09/03/23 14:50 Fluid - Thoracentesis Fluid Body Fluid Culture - Preliminary No growth-Final to follow Radiography Diagnostic Testing: Radiology Impression Chest X-Ray 09/04/23 05:55 IMPRESSION: Left greater than right infiltrates or edema and pleural effusions. Right chest tube. No pneumothorax seen. Electronically Signed: Bill Johnson MD at 11:09 EDT , Chest X-Ray 09/05/23 07:00 IMPRESSION: 1. Similar findings. Well-positioned thoracostomy tube. Left greater than right pleural effusions and basilar opacities. 2. Suspicion of trace residual right pneumothorax as described, likely improved. There appear to be a larger subpulmonic pneumothorax component on September 03 2023. Electronically Signed: Lizz Gardner MD at 9:06 EDT , Physical Exam Const alert Constitutional Narrative: Flat affect General Appearance: cooperative Chest Chest Narrative: Chest tube in place draining serosanguineous fluid with some exudative material. The total output to the Pleur-evac collection system appears to have risen from the 1000 to 1500 mL today. I do not see any signs of air leak. I do not palpate any crepitus along the chest wall. All chest tube connections appear intact. Patient remains connected to suction at -20 cmH2O Resp Resp Narrative: Mildly tachypneic. Pleur-evac with no obvious air leak but there is titling. Chest tube is currently connected to -20 cm of water without kinking and all connections appear intact. Assessment & Plan Assessment/Plan (1) Breast mass: (2) Bilateral pleural effusion: (3) Iatrogenic pneumothorax: PLAN: Plan Patient is 68-year-old female with likely new metastatic breast cancer diagnosis and associated pleural effusions. Cytology is currently pending from earlier thoracentesis that resulted in a significant pneumothorax. Chest tube was placed by emergency medicine and appears in reasonably good position within the right hemithorax. Multiple conversations have now been held between hospitalist service and myself regarding the proper course of action. There is been some out reach to both patient's PCP as well as oncology. Initially there was concern for ongoing drainage and possible need for transfer for thoracentesis, however, additional oncology consultation suggest that the effusions should significantly improve with treatment. Thus, we will plan to await the results of patient's cytology result. If this is inconclusive, patient may require a breast biopsy. For now, patient's chest tube still is accumulating had a rather impressive rate (500 mL over the past 24 hours) and I would be reluctant to pull her chest tube for risk of early reaccumulation. For now recommend: ? Chest tube to continuous suction at -20 cm of water monitoring for kinking and disconnection ? A.m. chest x-ray ? Follow-up cytology and await primary team/oncology stance on need for additional tissue Charges/Coding Visit Charges Inpatient E&M: 19386 Subs Hosp L2
--- NOTE | 2023-09-05 10:42 | NURSING ---
This nurse resuming care of this patient at this time.
--- NOTE | 2023-09-05 19:21 | PN.HOSP_ITS ---
Reason for Visit Reason for Visit: Diagnoses Essential (primary) hypertension (09/03/23) Pleural effusion, not elsewhere classified (09/03/23) Postprocedural pneumothorax (09/03/23) Acute respiratory failure with hypoxia (09/03/23) Unspecified lump in unspecified breast (09/03/23) Other abnormalities of breathing (09/03/23) Subjective Subjective Patient was seen and examined today, I talked with her family members who are present in the room today, patient's sister and brother were in the room. Patient's continue to have a lot of drainage from her right chest tube. I have elected at this time not to proceed with thoracentesis tomorrow on her left side, patient is on 2 L of oxygen and although she has rapid shallow respirations, she does not appear to be in any obvious distress. I am not sure how much the patient understands about her possible illness, I did talk with the patient's PCPs covering nurse practitioner today, she stated that the patient had been going to a chiropractor for quite some time and there was x-rays obtained and then came in to see her PCP after the x-ray showed fluid in the chest cavity. Patient was then sent to pulmonary medicine for evaluation (Dr. Reyes) and he ordered the thoracentesis. I talked briefly with oncology today by phone, patient has not yet seen any oncologist and oncology would prefer to see the patient after a tissue diagnosis has been made. I will contact pathology tomorrow morning and discuss the case with them. Objective Data Objective Data Vital Signs: Vital Signs Temp Pulse Resp BP Pulse Ox O2 Del Method O2 Flow Rate 97.5 F L 102 H 18 139/99 H 97 Nasal Cannula 2 09/05/23 18:46 09/05/23 18:46 09/05/23 18:46 09/05/23 18:46 09/05/23 18:46 09/05/23 18:46 09/05/23 18:46 Oxygen Flow Rate (L/min) 2 Oxygen Delivery Method Nasal Cannula Weight: 70.6 kg Body Mass Index (BMI) 25.9 Intake & Output: Intake and Output for Last 24 Hours 09/03/23 09/04/23 09/05/23 23:59 23:59 23:59 Intake Total 1619.33 / 1619.33 120 / 120 Output Total 650 / 800 2085 / 2084 540 / 540 Balance -650 / -800 -465.67 / -465.67 -420 / -420 Medical Nutrition Assessment Dietitian: Malnutrition Criteria Met Start: 09/04/23 11:52 Freq: Status: Active Protocol: Document 09/04/23 11:52 (Rec: 09/04/23 11:52 AG [id number]) Nutrition Malnutrition Evidence of Malnutrition Exists Yes Malnutrition (severe): Chronic Evidenced By Suboptimal Energy Intake ( Severe),Weight Loss (Severe) Clinical Problem Chronic Disease or Condition Related Malnutrition Etiology severe, chronic malnutrition related to inadequate energy intake w/ increased energy needs d/t likely metastatic disease Signs/Symptoms as evidenced by estimated PO intake meeting <75% of estimated energy needs x 3 months, unintentional 9% wt loss x 3 months Status Active Problem Recommendation Dietitian Recommendations/Changes diet advanced to regular per Dr. Bai. Ensure Plus High Protein 120mL 4x/day w/ medpass given evidence of malnutrition Lab / Micro Data 09/04/23 05:11 09/04/23 05:11 Micro: Microbiology 09/03/23 14:50 Fluid - Thoracentesis Fluid Gram Stain - Final 09/03/23 14:50 Fluid - Thoracentesis Fluid Body Fluid Culture - Preliminary No growth-Final to follow Radiography Diagnostic Testing: Radiology Impression Chest X-Ray 09/05/23 07:00 IMPRESSION: 1. Similar findings. Well-positioned thoracostomy tube. Left greater than right pleural effusions and basilar opacities. 2. Suspicion of trace residual right pneumothorax as described, likely improved. There appear to be a larger subpulmonic pneumothorax component on September 03 2023. Electronically Signed: Lizz Gardner MD at 9:06 EDT , Physical Exam Narrative alert, oriented x3 and no apparent distress Constitutional Narrative: Patient appears frail, unwell General Appearance: cooperative, well kempt and well developed Orientation / Consciousness: awake, oriented to person and oriented to place HEENT normocephalic, head/scalp atraumatic and moist oral mucous membranes Eyes PERRL, EOMs intact bilaterally and conjunctivae normal Neck supple, no JVD, thyroid normal and no carotid bruits General: trachea midline Resp Resp Narrative: There are diminished breath sounds on the right, there is diminished breath sounds at the left lung base extending to the left mid lung Patient's respirations are shallow and rapid at time Auscultation: Negative for rales, rhonchi or wheezes Cardio regular rate, regular rhythm, S1 normal heart sound, S2 normal heart sound, no murmurs, no rub and no gallops GI normal to inspection, nondistended, normoactive bowel sounds, soft to palpation, non-tender and non-distended Extremity no clubbing, cyanosis or edema Skin Skin Narrative: The entire right breast area is reddened and firm to the touch, the firmness extends up into the right axillary area Neuro oriented x3, CN's II-XII intact bilaterally, moves all extremities, no focal motor deficits and no sensory deficits noted Sensorium / Orientation: awake, alert, oriented to person and oriented to place Speech: speech normal Psych affect normal Assessment & Plan Assessment/Plan (1) Bilateral pleural effusion: (2) Acute respiratory failure with hypoxia: PLAN: Plan 1. Iatrogenic pneumothorax-patient has a chest tube in place and she is still getting drainage, I discussed her care with general surgery today. I will contact pathology tomorrow to go over the case with them #2 bilateral pleural effusions-right chest tube is draining large amounts of fluid still, we are waiting for cytology on the pleural fluid #3 suspected metastatic cancer with skeletal mets present-the most likely source of the metastatic cancer appears to be undiagnosed right breast cancer, patient may need a biopsy of the right breast if her pleural fluid does not show cancer. #4 hypoxia secondary to bilateral pleural effusions and iatrogenic pneumothorax- patient is currently on 2 L of oxygen Total clinical time spent by myself addressing the patient's medical issues, reviewing all of her data, and collaborating with patient's care team: 35 minutes Charges/Coding Visit Charges Inpatient E&M: 81756 Subs Hosp L2
[2023-09-05] MEDS: 0.9% Normal Saline (1000mL) 1,000 ML 40 ML IV (23:25)
[2023-09-06] VITALS (9 sets, daily range): BP systolic 124–148; BP diastolic 75–89; PULSE 98–107; RESP 14–18; TEMP 36.3–36.4; O2SAT 94–98; BMI 25.4
--- NOTE | 2023-09-06 06:10 | RAD_ITS ---
EXAM: XR CHEST, 1 VIEW CLINICAL INDICATION: chest tube TECHNIQUE: Frontal view of the chest. COMPARISON: 09/05/2023. FINDINGS: LUNGS AND PLEURAL SPACES: Slight residual right apical pneumothorax similar to the prior exam. No change in the moderate right and large left pleural effusion. HEART: Unremarkable. Cardiac silhouette not enlarged. MEDIASTINUM: Central airways and mediastinal contour are unremarkable. BONES/JOINTS: Unremarkable. No acute fracture. SOFT TISSUES: Unremarkable. TUBES, LINES AND DEVICES: No change in the right-sided chest tube. RAD/Chest 1 View (Portable) IMPRESSION: 1. Slight residual right apical pneumothorax similar to the prior exam. 2. No change in the right-sided chest tube. 3. No change in the moderate right and large left pleural effusion. Electronically Signed: Stevie Mendez MD at 6:36 EDT ,
--- NOTE | 2023-09-06 08:08 | PN.SURG_ITS ---
Subjective Subjective Patient seen and examined during AM rounds. She has found resting in bed. She denies any acute events overnight. Objective Data Objective Data Vital Signs: Vital Signs Temp Pulse Resp BP Pulse Ox O2 Del Method O2 Flow Rate 97.3 F L 101 H 18 148/89 H 96 Nasal Cannula 2 09/06/23 03:45 09/06/23 03:45 09/06/23 03:45 09/06/23 03:45 09/06/23 03:45 09/06/23 03:45 09/06/23 03:45 Oxygen Flow Rate (L/min) 2 Oxygen Delivery Method Nasal Cannula Weight: 152 lb 12.485 oz Body Mass Index (BMI) 25.4 Intake & Output: Intake and Output for Last 24 Hours 09/04/23 09/05/23 09/06/23 23:59 23:59 23:59 Intake Total 1619.33 / 1619.33 1118.67 / 1118.67 Output Total 2085 / 2085 730 / 730 250 / 250 Balance -465.67 / -465.67 388.67 / 388.67 -250 / -250 Medical Nutrition Assessment Dietitian: Malnutrition Criteria Met Start: 09/04/23 11:52 Freq: Status: Active Protocol: Document 09/04/23 11:52 AG (Rec: 09/04/23 11:52 [id number]) Nutrition Malnutrition Evidence of Malnutrition Exists Yes Malnutrition (severe): Chronic Evidenced By Suboptimal Energy Intake ( Severe),Weight Loss (Severe) Clinical Problem Chronic Disease or Condition Related Malnutrition Etiology severe, chronic malnutrition related to inadequate energy intake w/ increased energy needs d/t likely metastatic disease Signs/Symptoms as evidenced by estimated PO intake meeting <75% of estimated energy needs x 3 months, unintentional 9% wt loss x 3 months Status Active Problem Recommendation Dietitian Recommendations/Changes diet advanced to regular per Dr. Bai. Ensure Plus High Protein 120mL 4x/day w/ medpass given evidence of malnutrition Lab / Micro Data 09/04/23 05:11 09/04/23 05:11 Micro: Microbiology 09/03/23 14:50 Fluid - Thoracentesis Fluid Gram Stain - Final 09/03/23 14:50 Fluid - Thoracentesis Fluid Body Fluid Culture - Preliminary No growth-Final to follow Radiography Diagnostic Testing: Radiology Impression Chest X-Ray 09/05/23 07:00 IMPRESSION: 1. Similar findings. Well-positioned thoracostomy tube. Left greater than right pleural effusions and basilar opacities. 2. Suspicion of trace residual right pneumothorax as described, likely improved. There appear to be a larger subpulmonic pneumothorax component on September 03 2023. Electronically Signed: Lizz Gardner MD at 9:06 EDT , Chest X-Ray 09/06/23 06:10 IMPRESSION: 1. Slight residual right apical pneumothorax similar to the prior exam. 2. No change in the right-sided chest tube. 3. No change in the moderate right and large left pleural effusion. Electronically Signed: Stevie Mendez MD at 6:36 EDT , Physical Exam Const oriented x3 Constitutional Narrative: Flat affect General Appearance: cooperative Chest Chest Narrative: Chest tube in place draining serosanguineous fluid with some exudative material. The total output to the Pleur-evac collection system appears to have risen from the 7117-8602 mL today. Today there is an intermittent airleak when patient is able to truly cough. I do not palpate any crepitus along the chest wall. All chest tube connections appear intact. Patient remains connected to suction at - 20 cmH2O Resp Resp Narrative: Mildly tachypneic Assessment & Plan Assessment/Plan (1) Breast mass: (2) Bilateral pleural effusion: (3) Iatrogenic pneumothorax: PLAN: Plan Patient is 68-year-old female with likely new metastatic breast cancer diagnosis and associated pleural effusions. Cytology is currently pending from earlier thoracentesis that resulted in a significant pneumothorax. Chest tube was placed by emergency medicine and appears in reasonably good position within the right hemithorax. Multiple conversations have now been held between hospitalist service and myself regarding the proper course of action. There is been some outreach to both patient's PCP as well as oncology. Initially there was concern for ongoing drainage and possible need for transfer for thoracentesis and pleu rodesis, however, additional oncology consultation suggest that the effusions should significantly improve with treatment. Thus, we will plan to await the results of patient's cytology result. If this is inconclusive, patient may require a breast biopsy. Once again patient's chest tube still is accumulating at a rather impressive rate (450 mL over the past 24 hours) and I would be reluctant to pull her chest tube for risk of early reaccumulation. Additionally today there is observation of an air leak and a trace pneumothorax. Thus we must see that the lung is able to seal. If we are unable to control the airleak patient may need transfer for attention from cardiothoracic surgery anyhow. For now recommend: ? Chest tube to continuous suction at -20 cm of water monitoring for kinking and disconnection ? A.m. chest x-ray ? Follow-up cytology and await primary team/oncology stance on need for additional tissue Charges/Coding Visit Charges Inpatient E&M: 65038 Subs Hosp L2
[2023-09-06] MEDS: Ensure Plus High Protein 120 ML LIQUID PO ×4 (11:04→22:00)
[2023-09-06 13:19] LABS: Lymphocytes 97 %; Macrophages 2 %
--- NOTE | 2023-09-06 19:12 | PN.HOSP_ITS ---
Reason for Visit Reason for Visit: Diagnoses Essential (primary) hypertension (09/03/23) Pleural effusion, not elsewhere classified (09/03/23) Postprocedural pneumothorax (09/03/23) Acute respiratory failure with hypoxia (09/03/23) Unspecified lump in unspecified breast (09/03/23) Other abnormalities of breathing (09/03/23) Subjective Subjective Patient was seen and examined today, we are still getting quite a bit of fluid from her right chest tube. I talked briefly with surgery about her care today, I also talked with her PCP by phone late this afternoon, he stated that the patient had a chest x-ray approximately 5 weeks ago which showed evidence of pleural effusion, she was then referred to pulmonary medicine who saw the patient and ordered a thoracentesis. Patient also had refused a breast biopsy scheduling by the PCP. Patient did have an outpatient CT of the chest and abdomen which I ask if the PCP would be kind enough to fax to PCU to included in her chart. Patient is still on 2 L of oxygen at this time, she appears comfor table at rest, I spent some time with her and her siblings today discussing whether to work her illness up further with perhaps a breast biopsy, patient cannot decide and try to defer the decision to her brother, he declined to make that decision however. Pathology stated that the fluid cytology would be back in the morning, if this does not prove helpful, she will more than likely need a breast biopsy before we can proceed with any treatment or have hospice consultation. Objective Data Objective Data Vital Signs: Vital Signs Temp Pulse Resp BP Pulse Ox O2 Del Method O2 Flow Rate 97.3 F L 98 14 124/75 H 98 Nasal Cannula 2 09/06/23 16:21 09/06/23 16:21 09/06/23 16:21 09/06/23 16:21 09/06/23 16:21 09/06/23 16:21 09/06/23 16:21 Oxygen Flow Rate (L/min) 2 Oxygen Delivery Method Nasal Cannula Weight: 69.3 kg Body Mass Index (BMI) 25.4 Intake & Output: Intake and Output for Last 24 Hours 09/04/23 09/05/23 09/06/23 23:59 23:59 23:59 Intake Total 1619.33 / 1619.33 1118.67 / 1118.67 300 / 300 Output Total 2084 / 2084 730 / 730 770 / 770 Balance -465.67 / -465.67 388.67 / 388.67 -470 / -470 Medical Nutrition Assessment Dietitian: Malnutrition Criteria Met Start: 09/04/23 11:52 Freq: Status: Active Protocol: Document 09/04/23 11:52 (Rec: 09/04/23 11:52 [id number]) Nutrition Malnutrition Evidence of Malnutrition Exists Yes Malnutrition (severe): Chronic Evidenced By Suboptimal Energy Intake ( Severe),Weight Loss (Severe) Clinical Problem Chronic Disease or Condition Related Malnutrition Etiology severe, chronic malnutrition related to inadequate energy intake w/ increased energy needs d/t likely metastatic disease Signs/Symptoms as evidenced by estimated PO intake meeting <75% of estimated energy needs x 3 months, unintentional 9% wt loss x 3 months Status Active Problem Recommendation Dietitian Recommendations/Changes diet advanced to regular per Dr. Bai. Ensure Plus High Protein 120mL 4x/day w/ medpass given evidence of malnutrition Lab / Micro Data 09/04/23 05:11 09/04/23 05:11 Labs: Laboratory Results - last 24 hr 09/03/23 14:50: Fluid Source THORACENTESIS, Fluid Color YELLOW, Fluid Appearance CLEAR, Fluid WBC 0.759, Fluid RBC 25, Fluid Tot Cell Count 0.775 H, Fld Polynuclear WBCs # 0.008, Fld Polynuclear WBCs % 1.0, Fluid Mononuclear WBCs 0.751, Fld Mononuclear WBCs % 99.0, Fluid Neutrophils 1, Fluid Lymphocytes 97, Fluid Monocytes PRECISION HONING MACHINE OPERATOR, Fluid Macrophages 2, Fl Pathologist Comment May follow, Fluid Comment 2 SEE COMMENT Micro: Microbiology 09/03/23 14:50 Fluid - Thoracentesis Fluid Gram Stain - Final 09/03/23 14:50 Fluid - Thoracentesis Fluid Body Fluid Culture - Final No growth aerobically. 09/03/23 14:50 Fluid - Thoracentesis Fluid Anaerobic Culture - Preliminary No growth in 48 hours. Radiography Diagnostic Testing: Radiology Impression Chest X-Ray 09/06/23 06:10 IMPRESSION: 1. Slight residual right apical pneumothorax similar to the prior exam. 2. No change in the right-sided chest tube. 3. No change in the moderate right and large left pleural effusion. Electronically Signed: Stevie Mendez MD at 6:36 EDT , Physical Exam Narrative alert, oriented x3 and no apparent distress Constitutional Narrative: Patient appears frail, unwell General Appearance: cooperative, well kempt and well developed Orientation / Consciousness: awake, oriented to person and oriented to place HEENT normocephalic, head/scalp atraumatic and moist oral mucous membranes Eyes PERRL, EOMs intact bilaterally and conjunctivae normal Neck supple, no JVD, thyroid normal and no carotid bruits General: trachea midline Resp Resp Narrative: There are diminished breath sounds on the right, there is diminished breath soun ds at the left lung base extending to the left mid lung Patient's respirations are shallow and rapid at time Auscultation: Negative for rales, rhonchi or wheezes Cardio regular rate, regular rhythm, S1 normal heart sound, S2 normal heart sound, no murmurs, no rub and no gallops GI normal to inspection, nondistended, normoactive bowel sounds, soft to palpation, non-tender and non-distended Extremity no clubbing, cyanosis or edema Skin Skin Narrative: The entire right breast area is reddened and firm to the touch, the firmness extends up into the right axillary area Neuro oriented x3, CN's II-XII intact bilaterally, moves all extremities, no focal motor deficits and no sensory deficits noted Sensorium / Orientation: awake, alert, oriented to person and oriented to place Speech: speech normal Psych affect normal Assessment & Plan Assessment/Plan (1) Respiratory insufficiency: (2) Bilateral pleural effusion: (3) Acute respiratory failure with hypoxia: PLAN: Plan 1. Iatrogenic pneumothorax-patient has a chest tube in place and she is still getting drainage, I discussed her care with general surgery today. We are awaiting pathology results on her pleural fluid #2 bilateral pleural effusions-right chest tube is draining large amounts of fluid still, we are waiting for cytology on the pleural fluid #3 suspected metastatic cancer with skeletal mets present-the most likely source of the metastatic cancer appears to be undiagnosed right breast cancer, patient may need a biopsy of the right breast if her pleural fluid does not show cancer. At this time patient cannot make up her mind whether to proceed with the breast biopsy if it is needed. #4 hypoxia secondary to bilateral pleural effusions and iatrogenic pneumothorax- patient is currently on 2 L of oxygen Total clinical time spent by myself addressing the patient's medical issues, reviewing all of her data, and collaborating with patient's care team: 35 minutes Charges/Coding Visit Charges Inpatient E&M: 90379 Subs Hosp L2
[2023-09-07] VITALS (16 sets, daily range): BP systolic 105–168; BP diastolic 73–109; PULSE 79–173; RESP 16–24; TEMP 36.4; O2SAT 82–99; BMI 25.4
[2023-09-07] MEDS: 0.9% Normal Saline (1000mL) 1,000 ML 40 ML IV ×2 (00:39→23:26)
--- NOTE | 2023-09-07 08:07 | EKG12_ITS ---
Test Reason : HIGH HR Blood Pressure : / mmHG Vent. Rate : 159 BPM Atrial Rate : 000 BPM P-R Int : 000 ms QRS Dur : 068 ms QT Int : 264 ms P-R-T Axes : 000 031 250 degrees QTc Int : 429 ms Critical Test Result: High HR Atrial fibrillation with rapid ventricular response Low voltage QRS Nonspecific ST and T wave abnormality Abnormal ECG When compared with ECG of 03-SEP-2023 17:34, Significant changes have occurred Confirmed by Stevie Cuellar ([id number]), greeting card editor CLAU KILGORE ([id number]) on 09/09/2023 11:11:47 AM Referred By: Confirmed By:Stevie Cuellar
[2023-09-07] MEDS: Metoprolol Tartrate 50 MG Tablet PO ×2 (09:25→14:38)
[2023-09-07] MEDS: Ensure Plus High Protein 120 ML LIQUID PO ×3 (09:27→18:20)
[2023-09-07 10:22] LABS: Pathologist Comment/Body Fluid Reviewed
--- NOTE | 2023-09-07 11:00 | RAD_ITS ---
STUDY: X-RAY CHEST REASON FOR EXAM: Female, 68 years old. f/u CT status TECHNIQUE: Single AP portable view of the chest. COMPARISON: Comparison is made with prior study dated September 06, 2023. FINDINGS: A right-sided chest tube is once again seen in the right mid chest. Stable minimal right apical pneumothorax. Bilateral pleural effusions left greater than right with bibasilar infiltrates and/or atelectasis worse on the left side. Normal size heart. Normal mediastinum and sandrita. Normal visualized pulmonary arteries. There is atherosclerotic tortuosity of the aortic arch and descending thoracic aorta. There are diffuse degenerative changes of the visualized thoracic spine. Normal visualized ribs, clavicles, and shoulders. There is no demonstrated abnormality of the visualized soft tissue structures of the upper abdomen. RAD/Chest 1 View (Portable) IMPRESSION: Stable minimal right apical pneumothorax. Stable bilateral pleural effusions with bibasilar infiltration and/or atelectasis. Electronically Signed: Sarthak Fournier MD at 11:28 EDT ,
--- NOTE | 2023-09-07 11:50 | PCM.PN.SRG ---
Subjective Subjective Patient seen and examined during AM rounds. She is found resting in a chair. Her brother states that his sister had more difficulty catching her breath and her pulse oximeter was alarming this morning. She reports that she is feeling better following that event. Objective Data Objective Data Vital Signs: Vital Signs Temp Pulse Resp BP Pulse Ox O2 Del Method O2 Flow Rate 97.5 F L 135 H 20 H 147/75 H 97 Nasal Cannula 5 09/07/23 09:22 09/07/23 09:25 09/07/23 09:22 09/07/23 09:25 09/07/23 09:22 09/07/23 10:00 09/07/23 10:00 Oxygen Flow Rate (L/min) 5 Oxygen Delivery Method Nasal Cannula Weight: 152 lb 8.958 oz Body Mass Index (BMI) 25.4 Intake & Output: Intake and Output for Last 24 Hours 09/05/23 09/06/23 09/07/23 23:59 23:59 23:59 Intake Total 1118.67 / 1118.67 300 / 300 1000 / 1000 Output Total 730 / 730 770 / 780 10 / 10 Balance 388.67 / 388.67 -470 / -480 990 / 990 Medical Nutrition Assessment Dietitian: Malnutrition Criteria Met Start: 09/04/23 11:52 Freq: Status: Active Protocol: Document 09/04/23 11:52 (Rec: 09/04/23 11:52 [id number]) Nutrition Malnutrition Evidence of Malnutrition Exists Yes Malnutrition (severe): Chronic Evidenced By Suboptimal Energy Intake ( Severe),Weight Loss (Severe) Clinical Problem Chronic Disease or Condition Related Malnutrition Etiology severe, chronic malnutrition related to inadequate energy intake w/ increased energy needs d/t likely metastatic disease Signs/Symptoms as evidenced by estimated PO intake meeting <75% of estimated energy needs x 3 months, unintentional 9% wt loss x 3 months Status Active Problem Recommendation Dietitian Recommendations/Changes diet advanced to regular per Dr. Bai. Ensure Plus High Protein 120mL 4x/day w/ medpass given evidence of malnutrition Lab / Micro Data 09/04/23 05:11 09/04/23 05:11 Labs: Laboratory Results - last 24 hr 09/03/23 14:50: Fluid Source THORACENTESIS, Fluid Color YELLOW, Fluid Appearance CLEAR, Fluid WBC 0.759, Fluid RBC 25, Fluid Tot Cell Count 0.775 H, Fld Polynuclear WBCs # 0.008, Fld Polynuclear WBCs % 1.0, Fluid Mononuclear WBCs 0.751, Fld Mononuclear WBCs % 99.0, Fluid Neutrophils 1, Fluid Lymphocytes 97, Fluid Monocytes DELIVERY ASSOCIATE, Fluid Macrophages 2, Fl Pathologist Comment Reviewed, Fluid Comment 2 SEE COMMENT Micro: Microbiology 09/03/23 14:50 Fluid - Thoracentesis Fluid Gram Stain - Final 09/03/23 14:50 Fluid - Thoracentesis Fluid Body Fluid Culture - Final No growth aerobically. 09/03/23 14:50 Fluid - Thoracentesis Fluid Anaerobic Culture - Preliminary No growth in 48 hours. Radiography Diagnostic Testing: Radiology Impression Chest X-Ray 09/07/23 11:00 IMPRESSION: Stable minimal right apical pneumothorax. Stable bilateral pleural effusions with bibasilar infiltration and/or atelectasis. Electronically Signed: Sarthak Fournier MD at 11:28 EDT , Physical Exam Const oriented x3 and no apparent distress Constitutional Narrative: Flat affect General Appearance: cooperative Chest Chest Narrative: Chest tube in place draining serosanguineous fluid with some exudative material. The total output to the Pleur-evac collection system since its replacement yesterday is 500 mL. Once again, there is an intermittent airleak when patient is able to truly cough. I do not palpate any crepitus along the chest wall. All chest tube connections were directly interrogated and appear intact. Chest tube remains to suction at -20 cmH2O Resp Resp Narrative: Mildly tachypneic Assessment & Plan Assessment/Plan (1) Breast mass: (2) Bilateral pleural effusion: (3) Iatrogenic pneumothorax: PLAN: Plan Patient is 68-year-old female with likely new metastatic breast cancer diagnosis and associated pleural effusions. Cytology is reportedly consistent with only atypical cells from earlier thoracentesis that resulted in a significant pneumothorax. Chest tube was placed by emergency medicine and appears in reasonably good position within the right hemithorax. Multiple conversations have now been held between hospitalist service and myself regarding the proper course of action. There is been some outreach to both patient's PCP as well as oncology. Initially there was concern for ongoing drainage and possible need for transfer for thoracentesis and pleurodesis, however, additional oncology consultation suggest that the effusions should significantly improve with treatment. However, today sandoval the third day in a row that the output has been between 400- 500 mL Additionally both today and yesterday have observed an air leak as well as there is been a pneumothorax seen on patient's chest x-ray. Both of these stand as reasons against being able to pull the chest tube and I have also thus recommended consideration of transfer for cardiothoracic evaluation as patient may require pleurectomy with pleurodesis. At some point patient may also require a breast biopsy to definitively understand the etiology for her pleural effusions. For now recommend: ? Chest tube to continuous suction at -20 cm of water monitoring for kinking and disconnection ? A.m. chest x-ray ? Seek transfer for cardiothoracic surgery evaluation Charges/Coding Visit Charges Inpatient E&M: 99585 Subs Hosp L2
--- NOTE | 2023-09-07 18:50 | PCM.PN.HOSP ---
Reason for Visit Reason for Visit: Diagnoses Essential (primary) hypertension (09/03/23) Pleural effusion, not elsewhere classified (09/03/23) Postprocedural pneumothorax (09/03/23) Acute respiratory failure with hypoxia (09/03/23) Unspecified lump in unspecified breast (09/03/23) Other abnormalities of breathing (09/03/23) Subjective Subjective Patient was seen and examined today, I talked with general surgery who stated that the patient was having an air leak on the right side currently and that there was a small apical pneumothorax, they recommended transferring the patient out to another facility that has a chest surgeon. I contacted [facility] after talking with the patient and family members, they were okay with the patient going to another hospital. I talked with a chest surgeon (Gera Yañez) at [facility] who agreed to see the patient in consultation and the hospitalist service took the admission. Patient is waiting to be transferred at the present time to [facility]. Patient had an episode of atrial fibrillation this morning they placed her on metoprolol, at the time of this dictation she is converted to sinus rhythm. Objective Data Objective Data Vital Signs: Vital Signs Temp Pulse Resp BP Pulse Ox O2 Del Method O2 Flow Rate 97.5 F L 92 20 H 114/77 96 Nasal Cannula 3 09/07/23 16:20 09/07/23 16:20 09/07/23 16:20 09/07/23 16:20 09/07/23 16:20 09/07/23 16:20 09/07/23 16:20 Oxygen Flow Rate (L/min) 3 Oxygen Delivery Method Nasal Cannula Weight: 69.2 kg Body Mass Index (BMI) 25.4 Intake & Output: Intake and Output for Last 24 Hours 09/05/23 09/06/23 09/07/23 23:59 23:59 23:59 Intake Total 1118.67 / 1118.67 300 / 300 1600 / 1600 Output Total 730 / 730 770 / 780 540 / 540 Balance 388.67 / 388.67 -470 / -480 1060 / 1060 Medical Nutrition Assessment Dietitian: Malnutrition Criteria Met Start: 09/04/23 11:52 Freq: Status: Active Protocol: Document 09/07/23 15:55 RMA (Rec: 09/07/23 15:55 RMA [id number]) Nutrition Malnutrition Evidence of Malnutrition Exists Yes Malnutrition (severe): Chronic Evidenced By Suboptimal Energy Intake ( Severe),Weight Loss (Severe) Clinical Problem Chronic Disease or Condition Related Malnutrition Etiology severe, chronic malnutrition related to inadequate energy intake w/ increased energy needs d/t likely metastatic disease Signs/Symptoms as evidenced by estimated PO intake meeting <75% of estimated energy needs x 3 months, unintentional 9% wt loss x 3 months Status Active Problem Recommendation Dietitian Recommendations/Changes Continue liberalized regular diet with raspberry sherbet at lunch per pt request. Continue Ensure Plus High Protein 120mL 4x/day w/ medpass given evidence of malnutrition. Will add 240mL ensure clear w/ breakfast to try for tolerance. Will add magic cup w/ dinner. Adjust ONS as needed to optimize PO and prevent further weight loss. Lab / Micro Data 09/04/23 05:11 09/04/23 05:11 Labs: Laboratory Results - last 24 hr 09/03/23 14:50: Fl Pathologist Comment Reviewed Micro: Microbiology 09/03/23 14:50 Fluid - Thoracentesis Fluid Gram Stain - Final 09/03/23 14:50 Fluid - Thoracentesis Fluid Body Fluid Culture - Final No growth aerobically. 09/03/23 14:50 Fluid - Thoracentesis Fluid Anaerobic Culture - Preliminary No growth in 48 hours. Radiography Diagnostic Testing: Radiology Impression Chest X-Ray 09/07/23 11:00 IMPRESSION: Stable minimal right apical pneumothorax. Stable bilateral pleural effusions with bibasilar infiltration and/or atelectasis. Electronically Signed: Sarthak Fournier MD at 11:28 EDT , Physical Exam Narrative alert, oriented x3 and no apparent distress Constitutional Narrative: Patient appears frail, unwell General Appearance: cooperative, well kempt and well developed Orientation / Consciousness: awake, oriented to person and oriented to place HEENT normocephalic, head/scalp atraumatic and moist oral mucous membranes Eyes PERRL, EOMs intact bilaterally and conjunctivae normal Neck supple, no JVD, thyroid normal and no carotid bruits General: trachea midline Resp Resp Narrative: There are diminished breath sounds on the right, there is diminished breath sounds at the left lung base extending to the left mid lung Patient's respirations are shallow and rapid at time Auscultation: Negative for rales, rhonchi or wheezes Cardio regular rate, regular rhythm, S1 normal heart sound, S2 normal heart sound, no murmurs, no rub and no gallops GI normal to inspection, nondistended, normoactive bowel sounds, soft to palpation, non-tender and non-distended Extremity no clubbing, cyanosis or edema Skin Skin Narrative: The entire right breast area is reddened and firm to the touch, the firmness extends up into the right axillary area Neuro oriented x3, CN's II-XII intact bilaterally, moves all extremities, no focal motor deficits and no sensory deficits noted Sensorium / Orientation: awake, alert, oriented to person and oriented to place Speech: speech normal Psych affect normal Assessment & Plan Assessment/Plan (1) Respiratory insufficiency: (2) Bilateral pleural effusion: (3) Acute respiratory failure with hypoxia: PLAN: Plan 1. Iatrogenic pneumothorax-patient has a chest tube in place and she is still getting drainage, I discussed her care with general surgery today. We are awaiting pathology results on her pleural fluid #2 bilateral pleural effusions-right chest tube is draining large amounts of fluid still, we are waiting for cytology on the pleural fluid #3 suspected metastatic cancer with skeletal mets present-the most likely source of the metastatic cancer appears to be undiagnosed right breast cancer, patient may need a biopsy of the right breast if her pleural fluid does not show cancer. At this time patient cannot make up her mind whether to proceed with the breast biopsy if it is needed. #4 hypoxia secondary to bilateral pleural effusions and iatrogenic pneumothorax-patient is currently on 2 L of oxygen #5 severe chronic protein and caloric malnutrition related to inadequate energy intake with increased energy needs due to likely metastatic disease as evidenced by estimated p.o. intake meeting less than 75% of estimated energy needs x 3 months and unintentional 9% weight loss x 3 months-diet was advanced to regular, Ensure plus high-protein 120 cc 4 times a day will be given with [employer], nutritional services is following #6 elevated blood pressure-patient is on metoprolol currently for atrial fib, blood pressure will be monitored #7 paroxysmal atrial fibrillation-patient is now converted to sinus rhythm Total clinical time spent by myself addressing the patient's medical issues, reviewing all of her data, and collaborating with patient's care team: 50 minutes Charges/Coding Visit Charges Inpatient E&M: 59701 Subs Hosp L3
[2023-09-08 03:00] VITALS: BP 130/80; PULSE 88; RESP 20; TEMP 36.4; O2SAT 99
--- NOTE | 2023-09-08 07:48 | PCM.DC.SUM ---
Providers Date of Admission: 09/03/23 Date of Discharge: 09/08/23 Primary Care Physician: Dr. Gerry Arroyo MD Consultations 09/03/23 20:36 Consult: General Surgery Routine Consulting Provider: Stevie Olmedo Reason for Consult: Chest tube management EMERGENT Consult: No MD Notified: Yes Date Notified: 09/03/23 Time Notified: 20:37 Method of Notification: Verbal Reason For Visit: RIGHT PTX AFTER THORACENTESIS WITH Diagnosis Discharge Diagnosis (1) Respiratory insufficiency: Status: Acute Code(s): R06.89 - Other abnormalities of breathing (2) Bilateral pleural effusion: Status: Acute Code(s): J90 - Pleural effusion, not elsewhere classified (3) Acute respiratory failure with hypoxia: Status: Acute Code(s): J96.01 - Acute respiratory failure with hypoxia Plan 1. Iatrogenic pneumothorax-patient has a chest tube in place and she is still getting drainage, I discussed her care with general surgery today. We are awaiting pathology results on her pleural fluid #2 bilateral pleural effusions-right chest tube is draining large amounts of fluid still, we are waiting for cytology on the pleural fluid #3 suspected metastatic cancer with skeletal mets present-the most likely source of the metastatic cancer appears to be undiagnosed right breast cancer, patient may need a biopsy of the right breast if her pleural fluid does not show cancer. At this time patient cannot make up her mind whether to proceed with the breast biopsy if it is needed. #4 hypoxia secondary to bilateral pleural effusions and iatrogenic pneumothorax-patient is currently on 2 L of oxygen #5 severe chronic protein and caloric malnutrition related to inadequate energy intake with increased energy needs due to likely metastatic disease as evidenced by estimated p.o. intake meeting less than 75% of estimated energy needs x 3 months and unintentional 9% weight loss x 3 months-diet was advanced to regular, Ensure plus high-protein 120 cc 4 times a day will be given with [facility], nutritional services is following #6 elevated blood pressure-patient is on metoprolol currently for atrial fib, blood pressure will be monitored #7 paroxysmal atrial fibrillation-patient is now converted to sinus rhythm Total clinical time spent by myself addressing the patient's medical issues, reviewing all of her data, and collaborating with patient's care team: 50 minutes Medications at Discharge Home Medications NK 09/03/23 Hospital Course Operations None Procedures None Summary of Care Provided Minutes Spent on Discharge: 30 Hospital Course: This 68-year-old white female was seen in the emergency room at [facility] after undergoing a thoracentesis as an outpatient sustaining a pneumothorax. Patient had been worked up as an outpatient for bilateral pleural effusions, she had seen a aerospace products sales engineer few days before this and on examination she had an obvious right breast mass, she was scheduled for an outpatient thoracentesis which resulted in a pneumothorax. Patient underwent chest tube insertion in the emergency room, consulted, she was admitted to PCU, she also had a left pleural effusion which was substantial. Multiple conversations were carried out with the patient and the patient's family about how to proceed with diagnosis concerning her pleural effusion and her right breast abnormality, we elected to wait until fluid cytology was returned to make a decision about a breast biopsy. During her admission, she had persistent air leak on the right and a small apical pneumothorax, on 09/07/2023, general surgery advised transferring the patient for evaluation by chest surgeon, patient's family and the patient consented to this. On that same day, patient went into atrial fibrillation and was given oral metoprolol and converted to normal sinus rhythm. [facility] was contacted and agreed to take the patient but unfortunately due to bed availability, she was not discharged on 09/08/2023. Patient was not seen and examined on that day. During her hospitalization, I talked twice with who is her PCP. Weight / BMI Weight Weight: 69.2 kg Body Mass Index (BMI) 25.4 ABG / Lab / Microbiology Data 09/04/23 05:11 09/04/23 05:11 Laboratory: Laboratory Results - last 24 hr 09/03/23 14:50: Fl Pathologist Comment Reviewed Microbiology: Microbiology 09/03/23 14:50 Fluid - Thoracentesis Fluid Gram Stain - Final 09/03/23 14:50 Fluid - Thoracentesis Fluid Body Fluid Culture - Final No growth aerobically. 09/03/23 14:50 Fluid - Thoracentesis Fluid Anaerobic Culture - Preliminary No growth in 48 hours. Radiography Diagnostic Testing: Radiology Impression Chest X-Ray 09/07/23 11:00 IMPRESSION: Stable minimal right apical pneumothorax. Stable bilateral pleural effusions with bibasilar infiltration and/or atelectasis. Electronically Signed: Sarthak Fournier MD at 11:28 EDT , Meaningful Use Info Meaningful Use Diagnoses (Choose all that apply): None applicable Discharge Plan Admission Admit Date/Time: 09/03/23 20:37 Attending Provider: Chidi Bai Primary Care Provider: Gerry Arroyo Consulting Providers: Stevie Olmedo; Mckay Ghosh Discharge Orders/Prescriptions Prescriptions: No Action NK Referrals / Follow Up: Gerry Arroyo MD [Primary Care Provider] - Disposition Disposition (needs filled in before D/C Order can be placed): [facility]
== END 2023-09-08 02:40 | disposition short-term general hospital (02) | DRG 199 ==
LOC: ED 19:52 → PCU 20:51
PROVIDERS: Nurse Practitioner; Admitting Provider Internal Medicine; Emergency Provider Emergency Medicine; PCP Family Medicine; Visit Provider Internal Medicine
DX: J93.83 Other pneumothorax (principal); E43 Unspecified severe protein-calorie malnutrition; J94.8 Other specified pleural conditions; C79.51 Secondary malignant neoplasm of bone; J90 Pleural effusion, not elsewhere classified; C50.911 Malignant neoplasm of unspecified site of right female breast; I48.0 Paroxysmal atrial fibrillation; I10 Essential (primary) hypertension; R09.02 Hypoxemia; Z68.25 Body mass index [BMI] 25.0-25.9, adult; Z79.899 Other long term (current) drug therapy
CPT/HCPCS: 32551; 36415; 71045; 71046; 71275; 80048; 80053; 83735; 84100; 84443; 85025; 87070; 87075; 87205; 89050; 93005; 94762; 97162; 97166; 97530; 97802; 97803; 99285; J7030; Q9967; A4216

== ENCOUNTER → 2023-09-03 | Outpatient (CLI) | payer OTHER, SELFPAY ==
[2023-09-03] VITALS (14 sets, daily range): BP systolic 121–213; BP diastolic 66–119; PULSE 96–117; RESP 30–48; O2SAT 89–93
--- NOTE | 2023-09-03 | FLU_PTH ---
PATHOLOGY RESULTS PATIENT: DARCY BURNHAM LOC: [facility]#:[id number] AGE/SX: 68/F ROOM: RE09/03/[address]: Dr. Gerry Reyes MD : 1955 BED: DIS: 09/03/2023 SPEC #: [id number] RECD: 09/03/23 16:20 STATUS: KHALIF JACQUELINE #: [id number] JOHNNY: 09/03/23 00:[address]: Gerry Reyes V DEPT: CYTOLOGY RECD BY: Piyush Virk ENTERED: 09/06/23 10:26 SP TYPE: Fluid OTHR DR: Dr. Chidi Bai, DO Tissues: THORACIC FLUID Procedures: Special Stain Group II Mucicarmine Stain (control) Surgery Specimen Level IV Cytospin Fluid HEADER OPERATION: Thoracentesis PRE-OP DIAGNOSIS: Right pleural effusion TISSUE SUBMITTED: Thoracentesis fluid for cytology DIAGNOSIS CYTOLOGY Thoracentesis fluid for cytology (cytospin and cellblock); Atypical epithelial cells suspicious for metastatic carcinoma. See comment. CHEKO/ 09/08/2023 COMMENT Immunohistochemistry ([id number]) supports the above diagnosis. Mucin stain with matched control was used in the evaluation of this case and is negative in the atypical cells. This case was discussed with Dr. Bai on 09/07/[address] Venegas. Case has been reviewed in consultation with Dr. Kam who concurs with the above diagnosis. IDC:SJ CYTOLOGY STUDY Slides are reviewed. CYTOLOGY GROSS Received is 80 ml of yellow cloudy fluid labeled with the patient's name and and designated per the requisition as thoracentesis. Submitted for cytology preparation including cell block. / CHEKO:danya 09/06/2023 TC:? CPT: 73169, 56384 ,81579
--- NOTE | 2023-09-03 | IMM_PTH ---
PATHOLOGY RESULTS PATIENT: DARCY BURNHAM LOC: [facility]#:[id number] AGE/SX: 68/F ROOM: RE09/03/[address]: Dr. Gerry Reyes MD : 1955 BED: DIS: 09/03/2023 SPEC #: [id number] RECD: 09/07/23 07:44 STATUS: KHALIF REQ #: [id number] JOHNNY: 09/03/23 00:[address]: Gerry Reyes V DEPT: IMMUNOHISTOCHEMISTRY RECD BY: Charisma Kemp ENTERED: 09/07/23 07:46 SP TYPE: IMMUNO Tissues: THORACIC FLUID Procedures: CD20 (add) CD45 (add) CD5 (add) CD79A (add) CK8 (add) ER (add) KI-67 (add) P53 (add) NJ (add) Pankeratin (add) GATA3 (add) CD3 (initial) PHYSICIAN [facility] INSTIT[facility] [address] [address] SPECIMEN INFORMATION: Tissue Source: Thoracentesis fluid Clinical Info: Right pleural effusion Specimen Number: [id number] CPT code: 38926, 96743 x11 METHODOLOGY: Deparaffinized sections of prefer/formalin-fixed tissue or PAP/DQ stained slides are incubated with monoclonal/polyclonal antibodies/oligonucleotide probes. Localization is made via biotin free immunoperoxidase method. Appropriate controls are performed and reacted as expected. Results on target cell population are indicated in the following table: RESULTS: ANTIBODY / CLONE RESULT CD3 (PS1) positive CD5 (SP10) positive CD20 (L26) positive, focal CD79a (11E3) positive CD45 (RP2/18) positive ER (6F11) negative NJ (1E2) positive AE1-3 (AE1/AE3/PCK26) positive CK8 (90qqifP09) positive GATA3 (L50-823) positive, rare cells P53 (DO-7) negative, null pattern Ki-67 (30-9) positive, low , in lymphocytes These tests were developed and their performance characteristics determined by [facility]. They may not have been cleared or approved by the U.S. Food and Drug Administration. The FDA has determined that such clearance or approval is not necessary. The above immunohistochemical/dualISH markers are ordered and reviewed by the Pathologist. INTERPRETATION: Thoracentesis fluid (cell block): Atypical epithelioid cells suspicious for metastatic carcinoma. Am/mr 09/07/23 Case has been reviewed in consultation with Dr. Kam who concurs with the above diagnosis. IDC:SJ
[2023-09-03] MEDS: Lidocaine 2% (20 ml mdv) 20 ML Vial INFILT (13:55)
--- NOTE | 2023-09-03 14:18 | US_ITS ---
PROCEDURE: ULTRASOUND GUIDED THORACENTESIS. DATE: September 03, 2023. INDICATION: Female, 68 years old. Right pleural effusion. PHYSICIAN: Sarthak Fournier M.D. PROCEDURE: The risks, benefits, and alternatives to the procedure were explained to the patient. The specific risks of bleeding, infection, and pneumothorax requiring chest tube insertion were discussed and accepted. Written informed consent was obtained. Ultrasonographic evaluation of the right lower pleural space was carried out. An adequate pocket was identified. The patient was placed in the sitting, upright position. The overlying skin was prepped and draped in sterile fashion. 1% lidocaine was administered subcutaneously for local anesthesia. Under ultrasound guidance, a 5 Irish thoracentesis needle/catheter system was advanced into the right posterior lower pleural fluid collection. Approximately 2000 mL of johana-colored fluid was drained. The catheter was removed, and a sterile dressing was applied. A specimen was collected and sent to the laboratory for analysis, as requested by the referring clinician. The patient tolerated the procedure well. A chest x-ray was ordered. US/Thoracentesis W US IMPRESSION: Ultrasound-guided right thoracentesis. Electronically Signed: Sarthak Fournier MD at 15:31 EDT ,
--- NOTE | 2023-09-03 15:00 | RAD_ITS ---
STUDY: X-RAY CHEST REASON FOR EXAM: Female, 68 years old. immediately post thoracentesis TECHNIQUE: 2 AP portable view of the chest. COMPARISON: None. FINDINGS: A moderate to large size left pleural effusion is present obscuring half of the lung. A small to moderate-sized right pleural effusion is also visualized with pulmonary edema seen in the bilateral perihilar regions. A small nodular focus of consolidation is also partially visualized in the midline of the right lower lobe, which should be further assessed with CT of the chest to ensure this does not represent a mass. No pneumothorax is seen. Normal size heart. Normal mediastinum and sandrita. Normal visualized pulmonary arteries. There is atherosclerotic tortuosity of the aortic arch and descending thoracic aorta. There are diffuse degenerative changes of the visualized thoracic spine. Questionable sclerosis of the spinal vertebral bodies which can also be better assessed by CT. There is degenerative osteoarthritis of the bilateral shoulders. There is no demonstrated abnormality of the visualized soft tissue structures of the upper abdomen. RAD/Chest Insp/Exp 2 View IMPRESSION: 1. A moderate to large size left pleural effusion is present obscuring half of the lung. A small to moderate-sized right pleural effusion is also visualized with pulmonary edema seen in the bilateral perihilar regions. 2. A small nodular focus of consolidation is also partially visualized in the midline of the right lower lobe, which should be further assessed with CT of the chest to ensure this does not represent a mass. 3. No pneumothorax is seen. 4. Questionable sclerosis of the spinal vertebral bodies which can also be better assessed by CT. Electronically Signed: Prabhakar Cortez MD at 16:09 EDT ,
== END | disposition home or self-care (01) ==
PROVIDERS: Referring Provider Internal Medicine Pulmonary Disease; Visit Provider Internal Medicine Pulmonary Disease
DX: J90 Pleural effusion, not elsewhere classified (principal)
CPT/HCPCS: 32555; 71046; 88108; 88305; 88313; 88341; 88342